=== PATIENT | female | born 1950 | race American Indian/Alaskan Native ===

== ENCOUNTER 2018-05-19 08:36 | Inpatient (IN) | payer MEDICAID, MEDICARE ==
--- NOTE | 2018-05-19 08:47 | C.PDOC ---
History Of Present Illness As per daughter, 67 years old female presents to ED for complaints of Altered mental status. As per daughter, patient was last seen normal last night at 11PM, she was responding to commands, speaking normally with no slurred speech; but this morning around 6:30AM patient was not responding to commands or speaking. Patient has PMHx of stage 4 pancreatic cancer an was at the hospital last night and was discharged in a stable condition. Patient is also on blood thinner(xarelto) for DVT. Denies Hx of Stroke. No cough, fever, chills or night sweats. No trauma or falls. No other complaints. PMD: [facility]. Time Seen by Provider: 05/19/18 08:46 History Per: Family (Daughter) History/Exam Limitations: clinical condition Onset/Duration Of Symptoms: Hrs Current Symptoms Are (Timing): Still Present Recent travel outside of the [place]: No Past Medical History Reviewed: Historical Data, Nursing Documentation, Vital Signs - Medical History PMH: Arthritis, Asthma, Bronchitis Surgical History: Cholecystectomy Family History: States: Unknown Family Hx - Social History Hx Alcohol Use: No Hx Substance Use: No - Immunization History Hx Tetanus Toxoid Vaccination: No Hx Influenza Vaccination: Yes (07/2015) Hx Pneumococcal Vaccination: Yes (07/2015) Review Of Systems Review Of Systems: ROS cannot be obtained secondary to pt's inabilty to answer questions. (Due to clinical condition) Physical Exam - Physical Exam Appears: Non-toxic, No Acute Distress, Other (More responsive ) Skin: Warm, Dry, No Rash Head: Atraumatic, Normacephalic Eye(s): bilateral: Normal Inspection, PERRL, EOMI Oral Mucosa: Moist Neck: Normal ROM, Trachea Midline, Supple, No Other (Meningeal signs ) Chest: Symmetrical, No Tenderness Cardiovascular: Rhythm Regular, No Murmur Respiratory: Normal Breath Sounds, No Rales, No Rhonchi, No Wheezing Gastrointestinal/Abdominal: Soft, No Tenderness Extremity: Normal ROM Extremity: Bilateral: Atraumatic, Normal Color And Temperature, Normal ROM Pulses: Left Radial: Normal, Right Radial: Normal, Left Dorsalis Pedis: Normal, Right Dorsalis Pedis: Normal Neurological/Psych: Oriented x3, Normal Speech, Normal Cognition, No Cerebellar Signs ED Course And Treatment - Laboratory Results Result Diagrams: 05/20/18 03:25 05/20/18 03:25 - Other Rad CXR X-Ray: Viewed By Me, Read By Radiologist Interpretation: Chest x-ray single frontal view. HISTORY: Code stroke. COMPARISON: None available. Findings: Mild venous congestion. Tortuous ectatic aorta. No gross aortic atherosclerotic calcification noted. Right paratracheal prominence may represent prominent vasculature. Heart size within normal limits. Bilateral hilar prominence. Degenerative changes in the spine and shoulders. Impression: Mild venous congestion. Tortuous ectatic aorta. No gross aortic atherosclerotic calcification noted. Heart size within normal limits. Bilateral hilar prominence. - CT Scan/US CT Head Other Rad Studies (CT/US): Read By Radiologist, Radiology Report Reviewed CT/US Interpretation: Date of service: 05/19/2018. PROCEDURE: CT HEAD WITHOUT CONTRAST. HISTORY: Code Stroke. COMPARISON: 10/16/2015. TECHNIQUE: Axial computed tomography images were obtained through the head/brain without intravenous contrast. Radiation dose: Total exam DLP = 999.59 mGy-cm. This CT exam was performed using one or more of the following dose reduction techniques: Automated exposure control, adjustment of the mA and/or kV according to patient size, and/or use of iterative reconstruction technique. FINDINGS: HEMORRHAGE: No intracranial hemorrhage. BRAIN: No mass effect or edema. Scattered focal lucencies in the subcortical and periventricular white matter suggestive for chronic microvascular ischemic change. Punctate right basal ganglia lacunar infarct. Additional punctate hypodensity in the left caudate head which may represent a prominent perivascular space versus punctate lacunar infarct. VENTRICLES: Unremarkable. No hydrocephalus. CALVARIUM: Unremarkable. PARANASAL SINUSES: Mild mucosal thickening of the sphenoid sinus. MASTOID AIR CELLS: Unremarkable as visualized. No inflammatory changes. OTHER FINDINGS: None. IMPRESSION: No acute intracranial hemorrhage. Punctate right basal ganglia lacunar infarct. Chronic microvascular ischemic changes. Additional punctate hypodensity in the left caudate head which may represent a prominent perivascular space versus punctate lacunar infarct. Mild mucosal thickening of the sphenoid sinus. If there is persistent concern for acute ischemic change, consider correlation with MRI. These findings were reported to Dr. Matos at 9:21 a.m. on 05/19/2018. NIHSS Stroke Scale - Date/Time Evaluation Performed Date Performed: 05/19/18 Time Performed: 16:00 When Was NIHSS Performed: Code Stroke - How Severe is the Stroke Level of Consciousness: 0=Alert LOC to Questions: 0=Both comments correct LOC to commands: 0=Obeys both correctly Best Gaze: 0=Normal Visual: 0=No visual loss Facial: 0=Normal Motor Arm - Left: 2=Falls before 10 sec Motor Arm - Right: 2=Falls before 10 sec Motor Leg - Left: 2=Falls before 5 sec Motor Leg - Right: 2=Falls before 5 sec Limb Ataxia: 0=Absent Sensory: 0=Normal Best Language: 0=No aphasia Dysarthia: 0=Normal articulation Extinction & Inattention (Neglect): 0=Normal, no object Score: 8 Medical Decision Making Medical Decision Makin yr old female w/ hx of pancreatic CA p/w diffuse weakness, last seen normal last night. Code stroke called given NIHSS 8, however diffuse weakness, non focal, non stroke like presenting symptoms taken into consideration and likely non-tpa candidate given on blood thinner and out of window. Plan: * IV Fluids * Tylenol * Blood bank * CT Head * EKG * Blood work * CXR * Blood culture * Flu Swab * Urinalysis 8:56AM: * Code stroke called Appreciate consult w/ Dr. Urias: Likely Metabolic cause of weakness WBC returned: elevated: Code sepsis called. Abx ordered. Blood cultures taken previously. ?Intra-abdominal infection vs elevated WBC 2/2 ?Pancreatic CA Negative Urine. Negative XR. No meningeal signs. Appreicate consult w/ Dr. Stanley, P- Accepts admission. Endorsed Pending CT. Pt in NAD, protecting airway. Strength is better per family and pt. Disposition - Disposition Disposition: HOSPITALIZED Disposition Time: 12:23 Condition: GOOD - Clinical Impression Clinical Impression: Sepsis - Scribe Statement The provider has reviewed the documentation as recorded by the Scribmady Arce All medical record entries made by the Priyaibmady were at my direction and per sonally dictated by me. I have reviewed the chart and agree that the record accurately reflects my personal performance of the history, physical exam, medical decision making, and the department course for this patient. I have also personally directed, reviewed, and agree with the discharge instructions and disposition.
[2018-05-19] MEDS ORDERED: Iodixanol 320 MG/ML 100 ML BOTTLE IV ONE ×2 (09:04→12:51)
[2018-05-19 09:11] LABS: BASO # 0.2 K/uL (0.0-0.2); BASO % 0.7 % (0.0-2.0); EOS # 0.1 K/uL (0.0-0.7); EOS % 0.3 % (0.0-4.0); LYMPH # 1.7 K/uL (1.0-4.3); LYMPH % 6.1 % (20.0-40.0); MEAN CELL VOLUME 80.6 fL (81.0-99.0); MEAN CORPUSCULAR HEMOGLOBIN 26.5 pg (27.0-31.0); MEAN CORPUSCULAR HGB CONC 32.9 g/dL (33.0-37.0); MEAN PLATELET VOLUME 8.7 fL (7.2-11.7); MONO # 1.4 K/uL (0.0-0.8); MONO % 5.1 % (0.0-10.0); NEUT # 24.1 K/uL (1.8-7.0); NEUT % 87.8 % (50.0-75.0); NRBC % 0.1 % (0.0-2.0); PLATELET COUNT 224 K/uL (130-400); RBC 3.77 Mil/uL (3.80-5.20); RED CELL DISTRIBUTION WIDTH 16.2 % (11.5-14.5)
[2018-05-19 09:18] LABS: WHITE BLOOD COUNT 27.5 K/uL (4.8-10.8)
--- NOTE | 2018-05-19 09:26 | CT ---
Date of service: 05/19/2018 PROCEDURE: CT HEAD WITHOUT CONTRAST. HISTORY: Code Stroke COMPARISON: 10/16/2015 TECHNIQUE: Axial computed tomography images were obtained through the head/brain without intravenous contrast. Radiation dose: Total exam DLP = 999.59 mGy-cm. This CT exam was performed using one or more of the following dose reduction techniques: Automated exposure control, adjustment of the mA and/or kV according to patient size, and/or use of iterative reconstruction technique. FINDINGS: HEMORRHAGE: No intracranial hemorrhage. BRAIN: No mass effect or edema. Scattered focal lucencies in the subcortical and periventricular white matter suggestive for chronic microvascular ischemic change. Punctate right basal ganglia lacunar infarct. Additional punctate hypodensity in the left caudate head which may represent a prominent perivascular space versus punctate lacunar infarct. VENTRICLES: Unremarkable. No hydrocephalus. CALVARIUM: Unremarkable. PARANASAL SINUSES: Mild mucosal thickening of the sphenoid sinus. MASTOID AIR CELLS: Unremarkable as visualized. No inflammatory changes. OTHER FINDINGS: None. IMPRESSION: No acute intracranial hemorrhage. Punctate right basal ganglia lacunar infarct. Chronic microvascular ischemic changes. Additional punctate hypodensity in the left caudate head which may represent a prominent perivascular space versus punctate lacunar infarct. Mild mucosal thickening of the sphenoid sinus. If there is persistent concern for acute ischemic change, consider correlation with MRI. These findings were reported to Dr. Matos at 9:21 a.m. on 05/19/2018.
[2018-05-19 09:27] LABS: ALB/GLOB RATIO 0.6 (1.0-2.1); ALBUMIN 2.8 g/dL (3.5-5.0); ALT/SGPT 29 U/L (9-52); AST/SGOT 79 U/L (14-36); BLOOD UREA NITROGEN 19 mg/dL (7-17); CALCIUM 8.6 mg/dl (8.6-10.4); GFR NON-AFRICAN AMERICAN > 60; HDL CHOLESTEROL 17 mg/dL (30-70); LIPASE 27 U/L (23-300)
[2018-05-19 09:28] LABS: INR 3.2; PROTHROMBIN TIME 34.6 SECONDS (9.7-12.2)
[2018-05-19 09:37] LABS: LDL CHOLESTEROL 81 mg/dL (0-129)
[2018-05-19] MEDS ORDERED: Sodium Chloride 0.9% 1,000 ML ONE (09:48)
[2018-05-19] MEDS: Sodium Chloride 0.9% 1,000 ML IV SCH ×2 (09:55→16:37)
--- NOTE | 2018-05-19 09:55 | RAD ---
Chest x-ray single frontal view HISTORY: Code stroke. COMPARISON: None available. Findings: Mild venous congestion. Tortuous ectatic aorta. No gross aortic atherosclerotic calcification noted. Right paratracheal prominence may represent prominent vasculature. Heart size within normal limits. Bilateral hilar prominence. Degenerative changes in the spine and shoulders. Impression: Mild venous congestion. Tortuous ectatic aorta. No gross aortic atherosclerotic calcification noted. Heart size within normal limits. Bilateral hilar prominence.
[2018-05-19 10:26] LABS: SQUAMOUS EPITHIAL < 1 /hpf (0-5); URINE BACTERIA RARE (<OCC); URINE BILIRUBIN NEGATIVE (NEGATIVE); URINE BLOOD 1+ (NEGATIVE); URINE CLARITY Clear (Clear); URINE COLOR Amber (YELLOW); URINE GLUCOSE (UA) NORMAL (Normal); URINE LEUKOCYTE ESTERASE NEG Leu/uL (Negative); URINE PROTEIN NEGATIVE (NEGATIVE)
[2018-05-19 10:43] LABS: BANDS 2 % (0-2); LYMPHOCYTE 6 % (20-40); MONOCYTE 5 % (0-10); NEUTROPHIL 87 % (50-75); PLATELET ESTIMATE NORMAL (NORMAL); TOTAL CELLS COUNTED 100
[2018-05-19 10:44] LABS: ANISOCYTOSIS MODERATE; HYPOCHROMIC MODERATE; MICROCYTOSIS SLIGHT; POIKILOCYTOSIS SLIGHT; POLYCHROMIC SLIGHT; TARGET CELLS SLIGHT
[2018-05-19 10:45] LABS: GIANT PLATELETS PRESENT; SCHISTOCYTES SLIGHT; SPHEROCYTES SLIGHT
[2018-05-19] MEDS ORDERED: Piperacillin/Tazobact 3.375 gm 100 ML IVPB ONE (11:41)
[2018-05-19] MEDS: Piperacillin/Tazobact 3.375 GM in Sodium Chloride 100 ML IVPB SCH ×3 (11:49→23:15)
[2018-05-19] MEDS ORDERED: Nystatin 100,000 Units/ml Oral Susp 5 ml UD PO STA (12:05)
[2018-05-19 12:34] LABS: VENOUS BLOOD GAS PCO2 48 mmHg (40-60); VENOUS BLOOD GAS PO2 81 mm/Hg (30-55)
--- NOTE | 2018-05-19 15:57 | CP.PCM.PN ---
Subjective - Date & Time of Evaluation Date of Evaluation: 05/19/18 Time of Evaluation: 15:57 - Subjective Subjective: H&P dictated #[id number] Objective - Vital Signs/Intake and Output Vital Signs (last 24 hours): Temp Pulse Resp BP Pulse Ox 97.9 F 113 H 18 114/78 98 05/19/18 14:30 05/19/18 14:30 05/19/18 14:30 05/19/18 14:30 05/19/18 14:30 - Medications Medications: Current Medications Sodium Chloride (Sodium Chloride 0.9%) 1,000 mls @ 100 mls/hr IV .Q10H [facility] Last Admin: 05/19/18 09:55 Dose: 100 mls/hr Piperacillin Sod/Tazobactam (Sod 3.375 gm/ Sodium Chloride) 100 mls @ 200 mls/hr IVPB Q6H [facility]; Protocol Last Admin: 05/19/18 11:49 Dose: 200 mls/hr - Labs Labs: 05/19/18 09:06 05/19/18 09:06 PT 34.6 SECONDS (9.7-12.2) H 05/19/18 09:06 INR 3.2 H* 05/19/18 09:06 APTT 31 SECONDS (21-34) 05/19/18 09:06
--- NOTE | 2018-05-19 16:19 | CT ---
Date of service: 05/19/2018 PROCEDURE: CT Abdomen and Pelvis with intravenous contrast HISTORY: Pancreatic cancer with metastatic disease. Elevated white blood cell count. COMPARISON: CT dated 03/29/2012 TECHNIQUE: Multiple contiguous axial images were performed through the abdomen and pelvis with the use of intravenous contrast. Subsequently, sagittal and coronal reformatted images were obtained. Radiation dose: Total exam DLP = 329.98 mGy-cm. This CT exam was performed using one or more of the following dose reduction techniques: Automated exposure control, adjustment of the mA and/or kV according to patient size, and/or use of iterative reconstruction technique. FINDINGS: LOWER THORAX: Unremarkable. LIVER: Innumerable low-attenuation lesions throughout the liver consistent with prominent hepatic metastatic disease. GALLBLADDER AND BILE DUCTS: Surgical clips at the gallbladder hiatus. PANCREAS: Heterogeneous attenuation of the pancreas. Patient with known history of pancreatic cancer. Suggestion of a questionable ill-defined heterogeneous mass lesion at the junction of the body and tail of the pancreas measuring up to 2.6 centimeters. Heterogeneity and thickening at the level of the pancreatic head. Correlation with pancreatic protocol CT would be helpful for better evaluation of the pancreas. SPLEEN: Unremarkable. ADRENALS: Unremarkable. No mass. KIDNEYS AND URETERS: Unremarkable. No hydronephrosis. No solid mass. VASCULATURE: Suggestion of a filling defect within the left iliac vein concerning for deep venous thrombosis. Correlation with Doppler ultrasound would be helpful for further evaluation if clinically indicated. Additional questionable filling defect within the right iliac vein also concerning for possible DVT. Atherosclerotic calcification within the aorta. BOWEL: Gastric wall thickening. Distended and thick-walled small bowel loops suggestive for an enteritis. Colonic diverticulosis. Focal thickening of the mid sigmoid colon which may represent a focal colitis however colonic lesion and or colonic neoplasm at this level cannot be excluded. Correlation with colonoscopy would be helpful if clinically indicated. APPENDIX: Not well identified. PERITONEUM: Large amount of abdominal and pelvic ascites. Peritoneal carcinomatosis can't be excluded. LYMPH NODES: Shotty para-aortic and inguinal lymph nodes. Shotty mesenteric lymph nodes. BLADDER: Distended urinary bladder. REPRODUCTIVE: Unremarkable. BONES: Degenerative changes in the spine. OTHER FINDINGS: Large amount of abdominal and pelvic ascites. Diffuse anasarca. IMPRESSION: 1. Suggestion of a filling defect within the left iliac vein concerning for deep venous thrombosis. Correlation with Doppler ultrasound would be helpful for further evaluation if clinically indicated. Additional questionable filling defect within the right iliac vein also concerning for possible DVT. 2. Focal thickening of the mid sigmoid colon which may represent a focal colitis however colonic lesion and or colonic neoplasm at this level cannot be excluded. Correlation with colonoscopy would be helpful if clinically indicated. 3. Gastric wall thickening. Distended and thick-walled small bowel loops suggestive for an enteritis. 4. Heterogeneous attenuation of the pancreas. Patient with known history of pancreatic cancer. Suggestion of a questionable ill-defined heterogeneous mass lesion at the junction of the body and tail of the pancreas measuring up to 2.6 centimeters. Heterogeneity and thickening at the level of the pancreatic head. Correlation with pancreatic protocol CT would be helpful for better evaluation of the pancreas. 5. Innumerable low-attenuation lesions throughout the liver consistent with prominent hepatic metastatic disease. 6. Large amount of abdominal and pelvic ascites. Peritoneal carcinomatosis can't be excluded. Additional findings as above.
[2018-05-19] MEDS: Dextrose 5%/0.9% NS 1,000 ML IV SCH (17:15)
--- NOTE | 2018-05-19 18:19 | CP.PCM.CON ---
History of Present Illness - History of Present Illness History of Present Illness: Neurology Consultation Note: Mrs. Nunez is a 67-year-old woman with a past medical history of stage IV pancreatic cancer, who developed acute encephalopathy, discovered by daughter to be confused, and brought in to the ED. Labs and vital signs were consistent with sepsis. Neurology was consulted to assist with the management and care. She is currently on Zosyn for suspected infection. When I saw the patient, she was back to baseline and her family was at bedside and agreed. Review of Systems - Constitutional Constitutional: As Per HPI - EENT Eyes: absent: As Per HPI, Blind Spots, Blurred Vision, Change in Vision, Decr eased Night Vision, Diplopia, Discharge, Dry Eye, Exophthalmos, Floaters, Irritation, Itchy Eyes, Loss of Peripheral Vision, Pain, Photophobia, Requires Corrective Lenses, Sees Flashes, Spots in Vision, Tunnel Vision, Other Visual Disturbances, Loss of Vision, Other Ears: absent: As Per HPI, Decreased Hearing, Ear Discharge, Ear Pain, Tinnitus, Abnormal Hearing, Disequilibrium, Dizziness, Other Nose/Mouth/Throat: absent: As Per HPI, Epistaxis, Nasal Congestion, Nasal Discharge, Nasal Obstruction, Nasal Trauma, Nose Pain, Post Nasal Drip, Sinus Pain, Sinus Pressure, Bleeding Gums, Change in Voice, Dental Pain, Dry Mouth, Dysphagia, Halitosis, Hoarsness, Lip Swelling, Mouth Lesions, Mouth Pain, Odynophagia, Sore Throat, Throat Swelling, Tongue Swelling, Facial Pain, Neck Pain, Neck Mass, Other - Breasts Breasts: absent: As Per HPI, Change in Shape, Mass, Pain, Nipple Discharge, Nipple Inversion, Skin Changes, Swelling, Other - Cardiovascular Cardiovascular: absent: As Per HPI, Acrocyanosis, Chest Pain, Chest Pain at Rest, Chest Pain with Activity, Claudication, Diaphoresis, Dyspnea, Dyspnea on Exertion, Edema, Irregular Heart Rhythm, Pain Radiating to Arm/Neck/Jaw, Leg Edema, Leg Ulcers, Lightheadedness, Orthopnea, Palpitations, Paroxysmal Nocturnal Dyspnea, Pedal Edema, Radiating Pain, Rapid Heart Rate, Slow Heart Rate, Syncope, Other - Respiratory Respiratory: absent: As Per HPI, Cough, Dyspnea, Hemoptysis, Dyspnea on Exertion, Wheezing, Snoring, Stridor, Pain on Inspiration, Chest Congestion, Excessive Mucous Production, Change in Mucous Color, Pain with Coughing, Other - Gastrointestinal Gastrointestinal: As Per HPI - Genitourinary Genitourinary: absent: As Per HPI, Change in Urinary Stream, Difficulty Urinating, Dysuria, Flank Pain, Hematuria, Pyuria, Nocturia, Urinary Incontinence, Urinary Frequency, Urinary Hesitance, Urinary Urgency, Voiding Freq/Small Amts, Freq UTI, Hx Renal/Bladder Calculi, Hx /Renal Surgery, B ladder Distension, Other - Musculoskeletal Musculoskeletal: absent: As Per HPI, Abnormal Gait, Arthralgias, Atrophy, Back Pain, Deformity, Joint Swelling, Limited Range of Motion, Loss of Height, Muscle Cramps, Muscle Weakness, Myalgias, Neck Pain, Numbness, Radiating Pain into Limb, Stiffness, Tingling, Other - Integumentary Integumentary: absent: As Per HPI, Acne, Alopecia, Bleeding Lesions, Change in Hair, Change in Nails, Change in Pigmentation, Changing Lesions, Dry Skin, Erythema, Furuncle, Hirsutism, Lesions, New Lesions, Non-Healing Lesions, Photosensitivity, Pruritus, Rash, Skin Pain, Skin Ulcer, Sores, Striae, Swelling, Unusual Bruising, Wounds, Jaundice, Other - Neurological Neurological: As Per HPI - Psychiatric Psychiatric: absent: As Per HPI, Abnormal Sleep Pattern, Anhedonia, Anxiety, Auditory Hallucinations, Behavioral Changes, Change in Appetite, Change in Libido, Confusion, Depression, Difficulty Concentrating, Hallucinations, Homicidal Ideation, Hopelessness, Irritability, Memory Loss, Mood Swings, Panic Attacks, Paranoia, Suicidal Ideation, Visual Hallucinations, Tactile Hallucinations, Other - Endocrine Endocrine: absent: As Per HPI, Change in Body Appearance, Change in Libido, Cold Intolorance, Deepening of Voice, Excessive Sweating, Fatigue, Flushing, Heat Intolorance, Increase in Ring/Shoe/Hat Size, Palpitations, Polydipsia, Polyphagia, Polyuria, Other Past Patient History - Past Social History Smoking Status: Never Smoked - PULMONARY Hx Asthma: Yes Hx Bronchitis: Yes - HEMATOLOGICAL/ONCOLOGICAL Hx Cancer: Yes (pancreatic) - MUSCULOSKELETAL/RHEUMATOLOGICAL Hx Arthritis: Yes - GASTROINTESTINAL Hx Gastroesophageal Reflux: Yes - PSYCHIATRIC Hx Substance Use: No - SURGICAL HISTORY Hx Cholecystectomy: Yes - ANESTHESIA Hx Anesthesia: Yes Hx Anesthesia Reactions: No Meds Allergies/Adverse Reactions: Allergies Allergy/AdvReac Type Severity Reaction Status Date / Time shellfish derived Allergy Severe SHORTNESS Verified 05/19/18 09:42 OF BREATH - Medications Medications: Current Medications Docusate Sodium (Colace) 100 mg PO BID [facility] Folic Acid (Folic Acid) 1 mg PO DAILY [facility] Piperacillin Sod/Tazobactam (Sod 3.375 gm/ Sodium Chloride) 100 mls @ 200 mls/hr IVPB Q6H [facility]; Protocol Last Admin: 05/19/18 11:49 Dose: 200 mls/hr Dextrose/Sodium Chloride (Dextrose 5%/0.9% Ns 1000 Ml) 1,000 mls @ 75 mls/hr IV .[id number] [facility] Mirtazapine (Remeron) 7.5 mg PO HS [facility] Morphine Sulfate (Morphine Extended Release Tab) 30 mg PO Q8 [place] Multivitamins (Hexavitamin) 1 tab PO DAILY [facility] Pantoprazole Sodium (Protonix Ec Tab) 20 mg PO DAILY [facility] Rivaroxaban (Xarelto) 15 mg PO BID [facility] Sennosides (Senokot Tab) 8.6 mg PO BID [facility] Physical Exam - Constitutional Appears: Cachectic, Chronically Ill - Head Exam Head Exam: ATRAUMATIC, NORMAL INSPECTION, NORMOCEPHALIC - Eye Exam Eye Exam: EOMI, Normal appearance, PERRL - ENT Exam ENT Exam: Mucous Membranes Moist, Normal Exam - Neck Exam Neck exam: Positive for: Normal Inspection - Respiratory Exam Respiratory Exam: Clear to Auscultation Bilateral, NORMAL BREATHING PATTERN - Cardiovascular Exam Cardiovascular Exam: REGULAR RHYTHM, +S1, +S2 - GI/Abdominal Exam GI & Abdominal Exam: Normal Bowel Sounds, Soft. absent: Tenderness - Rectal Exam Rectal Exam: Deferred - Back Exam Back exam: NORMAL INSPECTION - Neurological Exam Neurological exam: Alert, CN II-XII Intact, Normal Gait, Oriented x3, Reflexes Normal - Psychiatric Exam Psychiatric exam: Normal Affect, Normal Mood - Skin Skin Exam: Dry, Intact, Normal Color, Warm Results - Vital Signs Recent Vital Signs: Last Vital Signs Temp 97.9 F 05/19/18 15:00 Pulse 111 H 05/19/18 15:00 Resp 20 05/19/18 15:00 BP 114/78 05/19/18 15:00 Pulse Ox 97 05/19/18 15:00 - Labs Result Diagrams: 05/19/18 09:06 05/19/18 09:06 Labs: Laboratory Results - last 24 hr 05/19/18 05/19/18 05/19/18 09:06 09:06 09:06 WBC 27.5 H D RBC 3.77 L Hgb 10.0 L D Hct 30.4 L MCV 80.6 L MCH 26.5 L MCHC 32.9 L RDW 16.2 H Plt Count 224 MPV 8.7 Neut % (Auto) 87.8 H Lymph % (Auto) 6.1 L [place] % (Auto) 5.1 Eos % (Auto) 0.3 Baso % (Auto) 0.7 Neut # (Auto) 24.1 H Lymph # (Auto) 1.7 [place] # (Auto) 1.4 H Eos # (Auto) 0.1 Baso # (Auto) 0.2 Neutrophils % (Manual) 87 H Band Neutrophils % 2 Lymphocytes % (Manual) 6 L Monocytes % (Manual) 5 Platelet Estimate Normal Giant Platelets Present Polychromasia Slight Hypochromasia (manual) Moderate Poikilocytosis (manual Slight Anisocytosis (manual) Moderate Microcytosis (manual) Slight Spherocytes Slight Target Cells Slight Schistocytes Slight PT 34.6 H INR 3.2 H* APTT 31 pO2 VBG pH VBG pCO2 VBG HCO3 VBG Total CO2 VBG O2 Sat (Calc) VBG Base Excess VBG Potassium Glucose Lactate Sodium 140 Potassium 4.6 Chloride 97 L Carbon Dioxide 32 H Anion Gap 16 BUN 19 H Creatinine 0.6 L Est GFR ( Amer) > 60 Est GFR (Non-Af Amer) > 60 Random Glucose 115 H Hemoglobin A1c Calcium 8.6 Total Bilirubin 1.6 H AST 79 H ALT 29 Alkaline Phosphatase 332 H Total Creatine Kinase 33 Troponin I 0.0160 Total Protein 7.3 Albumin 2.8 L D Globulin 4.4 H Albumin/Globulin Ratio 0.6 L Triglycerides 160 H Cholesterol 116 LDL Cholesterol Direct 81 HDL Cholesterol 17 L Lipase 27 Venous Blood Potassium Urine Color Urine Clarity Urine pH Ur Specific [place] Urine Protein Urine Glucose (UA) Urine Ketones Urine Blood Urine Nitrate Urine Bilirubin Urine Urobilinogen Ur Leukocyte Esterase Urine WBC (Auto) Urine RBC (Auto) Ur Squamous Epith Cells Urine Bacteria Hyaline Casts Influenza Typ A,B (EIA) Blood Type Antibody Screen 11/17/18 11/17/18 11/17/18 09:06 09:06 09:42 WBC RBC Hgb Hct MCV MCH MCHC RDW Plt Count MPV Neut % (Auto) Lymph % (Auto) [place] % (Auto) Eos % (Auto) Baso % (Auto) Neut # (Auto) Lymph # (Auto) [place] # (Auto) Eos # (Auto) Baso # (Auto) Neutrophils % (Manual) Band Neutrophils % Lymphocytes % (Manual) Monocytes % (Manual) Platelet Estimate Giant Platelets Polychromasia Hypochromasia (manual) Poikilocytosis (manual Anisocytosis (manual) Microcytosis (manual) Spherocytes Target Cells Schistocytes PT INR APTT pO2 VBG pH VBG pCO2 VBG HCO3 VBG Total CO2 VBG O2 Sat (Calc) VBG Base Excess VBG Potassium Glucose Lactate Sodium Potassium Chloride Carbon Dioxide Anion Gap BUN Creatinine Est GFR ( Amer) Est GFR (Non-Af Amer) Random Glucose Hemoglobin A1c 5.1 Calcium Total Bilirubin AST ALT Alkaline Phosphatase Total Creatine Kinase Troponin I Total Protein Albumin Globulin Albumin/Globulin Ratio Triglycerides Cholesterol LDL Cholesterol Direct HDL Cholesterol Lipase Venous Blood Potassium Urine Color Urine Clarity Urine pH Ur Specific [place] Urine Protein Urine Glucose (UA) Urine Ketones Urine Blood Urine Nitrate Urine Bilirubin Urine Urobilinogen Ur Leukocyte Esterase Urine WBC (Auto) Urine RBC (Auto) Ur Squamous Epith Cells Urine Bacteria Hyaline Casts Influenza Typ A,B (EIA) Negative for flu a/b Blood Type B POSITIVE Antibody Screen Negative 05/19/18 05/19/18 10:15 12:26 WBC RBC Hgb Hct MCV MCH MCHC RDW Plt Count MPV Neut % (Auto) Lymph % (Auto) [place] % (Auto) Eos % (Auto) Baso % (Auto) Neut # (Auto) Lymph # (Auto) [place] # (Auto) Eos # (Auto) Baso # (Auto) Neutrophils % (Manual) Band Neutrophils % Lymphocytes % (Manual) Monocytes % (Manual) Platelet Estimate Giant Platelets Polychromasia Hypochromasia (manual) Poikilocytosis (manual Anisocytosis (manual) Microcytosis (manual) Spherocytes Target Cells Schistocytes PT INR APTT pO2 81 H VBG pH 7.40 VBG pCO2 48 VBG HCO3 28.0 VBG Total CO2 31.2 H VBG O2 Sat (Calc) 97.8 H VBG Base Excess 4.0 H VBG Potassium 3.8 Glucose 93 Lactate 1.7 Sodium 145.0 Potassium Chloride 112.0 H Carbon Dioxide Anion Gap BUN Creatinine Est GFR ( Amer) Est GFR (Non-Af Amer) Random Glucose Hemoglobin A1c Calcium Total Bilirubin AST ALT Alkaline Phosphatase Total Creatine Kinase Troponin I Total Protein Albumin Globulin Albumin/Globulin Ratio Triglycerides Cholesterol LDL Cholesterol Direct HDL Cholesterol Lipase Venous Blood Potassium 3.8 Urine Color Ryann Urine Clarity Clear Urine pH 5.0 Ur Specific [place] 1.019 Urine Protein Negative Urine Glucose (UA) Normal Urine Ketones Trace Urine Blood 1+ H Urine Nitrate Negative Urine Bilirubin Negative Urine Urobilinogen 4.0 H Ur Leukocyte Esterase Neg Urine WBC (Auto) 1 Urine RBC (Auto) 6 H Ur Squamous Epith Cells < 1 Urine Bacteria Rare Hyaline Casts 6-10 H Influenza Typ A,B (EIA) Blood Type Antibody Screen Assessment & Plan (1) Toxic metabolic encephalopathy Assessment and Plan: The patient is back to baseline now. The acute encephalopathy was likely due to infection. Continue treating the underlying cause. Thank you for the consultation. Status: Acute
[2018-05-19] MEDS ORDERED: oxyCODONE 5 mg Immediate Release Tab PO PRN (18:37)
[2018-05-19] MEDS: oxyCODONE 5 mg Immediate Release Tab PO PRN (18:47)
[2018-05-19] MEDS: Morphine 30 mg SR Tab PO SCH (21:37)
[2018-05-19] MEDS: metroNIDAZOLE IV 500 mg/100 ml 250 MG in Premixed IV 1 EA IVPB SCH (21:43)
[2018-05-19 23:57] LABS: SQUAMOUS EPITHIAL 7 /hpf (0-5); URINE AMORPHOUS SEDIMENT RARE /ul (<OCC); URINE BILIRUBIN NEGATIVE (NEGATIVE); URINE BLOOD NEGATIVE (NEGATIVE); URINE CLARITY Clear (Clear); URINE COLOR Amber (YELLOW); URINE GLUCOSE (UA) NORMAL (Normal); URINE LEUKOCYTE ESTERASE NEG Leu/uL (Negative); URINE PROTEIN NEGATIVE (NEGATIVE)
[2018-05-20] MEDS: metroNIDAZOLE IV 500 mg/100 ml 250 MG in Premixed IV 1 EA IVPB SCH ×3 (02:57→20:21)
[2018-05-20 03:29] LABS: BASO # 0.2 K/uL (0.0-0.2); BASO % 0.9 % (0.0-2.0); EOS # 0.2 K/uL (0.0-0.7); EOS % 0.8 % (0.0-4.0); HEMOGLOBIN 8.7 g/dL (11.0-16.0); LYMPH # 0.8 K/uL (1.0-4.3); LYMPH % 3.5 % (20.0-40.0); MEAN CELL VOLUME 80.5 fL (81.0-99.0); MEAN CORPUSCULAR HEMOGLOBIN 26.6 pg (27.0-31.0); MEAN CORPUSCULAR HGB CONC 33.1 g/dL (33.0-37.0); MEAN PLATELET VOLUME 8.9 fL (7.2-11.7); MONO # 0.6 K/uL (0.0-0.8); MONO % 2.7 % (0.0-10.0); NEUT # 21.2 K/uL (1.8-7.0); NEUT % 92.1 % (50.0-75.0); NRBC % 0.2 % (0.0-2.0); PLATELET COUNT 168 K/uL (130-400); RBC 3.26 Mil/uL (3.80-5.20); RED CELL DISTRIBUTION WIDTH 16.4 % (11.5-14.5)
[2018-05-20 03:44] LABS: ALB/GLOB RATIO 0.6 (1.0-2.1); ALBUMIN 2.4 g/dL (3.5-5.0); ALT/SGPT 31 U/L (9-52); AST/SGOT 65 U/L (14-36); BLOOD UREA NITROGEN 16 mg/dL (7-17); CALCIUM 7.9 mg/dl (8.6-10.4); GFR NON-AFRICAN AMERICAN > 60; HDL CHOLESTEROL 16 mg/dL (30-70)
[2018-05-20 03:55] LABS: LDL CHOLESTEROL 70 mg/dL (0-129)
[2018-05-20 04:08] LABS: BANDS 4 % (0-2); BASOPHIL 1 % (0-2); LYMPHOCYTE 1 % (20-40); MONOCYTE 1 % (0-10); NEUTROPHIL 93 % (50-75); PLATELET ESTIMATE NORMAL (NORMAL); TOTAL CELLS COUNTED 100
--- NOTE | 2018-05-20 05:13 | HP ---
CHIEF COMPLIANT: The patient was found unresponsive by patient's family this morning around 06:00 a.m. HISTORY OF PRESENT ILLNESS: Ms. Nunez is a 67-year-old female with past medical history of asthma; DVT and PE, on Xarelto for the past one month or so; recently diagnosed stage IV pancreatic CA with mets to liver and omentum; who has been in [place], came to [place] only two weeks ago. She was admitted to [facility], on 05/08/2018 for symptoms of not feeling well and for dehydration. The patient was treated at [facility] until last night and she was discharged only last night. This morning, when the patient was awaken by the daughter, she did not respond. She did not move her extremities. Her symptoms lasted for about 20 to 30 minutes, which made her brought to the emergency room. As per the ER physician, she was more alert and was responding to commands and was speaking normally without any deficits. The patient was found to be having elevated WBC count and the patient is being admitted for further evaluation and management. When I examined the patient, she denied any headache or dizziness. Denied any chest pain, shortness of breath, or wheezing. Denied any nausea, vomiting, abdominal pain, diarrhea, or constipation. Denied any urinary complaints. Denied any leg pains or leg cramps. Denied any other neurologic symptoms. PAST MEDICAL HISTORY: As described DVT and PE, on anticoagulation; stage IV metastatic pancreatic CA with mets to liver and omentum; asthma. PAST SURGICAL HISTORY: Underwent cholecystectomy. FAMILY HISTORY: Asthma in mother, breast cancer in five aunts. PERSONAL HISTORY: She is , having five biological children and six adopted children and her daughter, Adis Ruiz, is the power of assistant prosecuting attorney, who will be making decision on the patient's behalf. SOCIAL HISTORY: Denies smoking, alcohol, or drug abuse. ALLERGIES: SHE IS ALLERGIC TO FISH. MEDICATIONS FROM HOME: Include nystatin oral suspension, senna b.i.d., Remeron 7.5 mg daily, omeprazole 20 mg daily, multivitamin, Colace 100 mg p.o. b.i.d., folic acid 1 mg daily, oxycodone 5 mg p.o. every 3 hours p.r.n., morphine sulfate 30 mg p.o. every 8 hours, Xarelto 15 mg p.o. b.i.d. REVIEW OF SYSTEMS: As described in history of present illness. All other systems reviewed and were found to be negative. PHYSICAL EXAMINATION: GENERAL: Elderly female lying in bed in no acute distress. VITAL SIGNS: Blood pressure is 114/78, pulse 111, O2 sats 97% on 2 L nasal cannula, respiratory rate 20, T-max is 100.7. HEENT: Pupils equal, round, reacting to light and accommodation. Extraocular muscles intact. No icterus. Slightly pallor. Dry mucous membranes. No pharyngeal congestion. NECK: Supple. No JVD. LUNGS: Bilateral vesicular breath sounds. No wheezing. No rhonchi. CARDIOVASCULAR: S1, S2 present. Regular, tachycardic. ABDOMEN: Soft. Bowel sounds present, distended, nontender. No guarding. No rigidity. No rebound tenderness noted. CENTRAL NERVOUS SYSTEM: Alert, awake, oriented x3. No focal deficits noted. EXTREMITIES: No edema. Palpable peripheral pulses. LABORATORY DATA: Labs done from the ED; WBC 27.5, hemoglobin 10, hematocrit 30.4, platelets 224. PT is 34.6, INR 3.2, PTT 31. ABG on room air, pH 7.4, pO2 of 81, pCO2 of 48, O2 sats 97%, glucose is 93, lactate 1.7. Sodium 140, potassium 4.6, chloride 97, bicarbonate 32, BUN 19, creatinine 0.6, glucose 115. Hemoglobin A1c 5.1, calcium 8.6, total bilirubin 1.6, AST 79, ALT 39, alkaline phosphatase 332. Troponin 0.016, total protein 7.3, albumin 2.8, globulin 4.4, cholesterol 116, LDL 81, HDL 17, lipase 27. UA, specific gravity 1.019, pH 5, blood 1+, rbc 6. Influenza negative. Urine culture and blood cultures sent from the ED. DIAGNOSTIC DATA: Chest x-ray, heart size within normal limits, bilateral hilar prominence, mild venous congestion, no gross aortic calcification. EKG consistent with sinus tachycardia at 121 beats per minute, non-specific T-wave abnormality, short [place]. CT head shows no acute intracranial hemorrhage, punctate right basal ganglia lacunar infarct, chronic microvascular ischemic changes, mild mucosal thickening of the sphenoid sinus. CT of the abdomen and pelvis shows a filling defect within the left iliac vein concerning for DVT, focal thickening of the mid sigmoid colon which may represent focal colitis, gastric wall thickening, heterogenous attenuation of the pancreas, heterogenous mass lesion at the junction of the body and tail of the pancreas measuring 2.6 cm, numerable low attenuation lesions throughout the liver consistent with prominent hepatic metastatic disease, large amount of abdominal and pelvic ascites, peritoneal carcinomatosis. ASSESSMENT: Elderly female with history of asthma, metastatic pancreatic cancer with metastasis to liver and omentum; deep vein thrombosis, pulmonary embolism, on anticoagulation; who was in [place], returned to [place] to live with her daughter about two weeks ago, was admitted to [facility] [place] on 05/08/2018 and discharged home only last night, came into the ED, brought by patient's family for unresponsiveness which lasted for about 20 to 30 minutes as per the patient's family. In the ED, the patient was found to be having elevated WBC count and the patient is being admitted for further management. 1. Altered mental status, rule out transient ischemic attack versus cardiovascular accident, rule out cardiac causes. 2. Elevated white blood cell count in a patient with history of stage IV pancreatic cancer, recently discharged from hospital, rule out sepsis, rule out Clostridium difficile colitis. 3. Anemia. 4. Coagulopathy. 5. Hyperbilirubinemia with abnormal liver function test. 6. Stage IV metastatic liver cancer with metastasis to liver and omentum. 7. History of asthma, stable. 8. History of deep vein thrombosis and pulmonary embolism, on Xarelto for more than a month. PLAN: The patient is being admitted to telemetry. We will do neuro checks. We will check troponin, check echocardiogram. We will obtain neurology evaluation, who was contacted from ED. We will check stool for C. difficile, cultures were sent from the ED. We will start empiric antibiotics with Zosyn and Flagyl, pending culture results. We will obtain ID evaluation with Dr. Casas. We will obtain hematology consult with Dr. Webb for metastatic CA of the pancreas. I will obtain records from [facility]. The patient was evaluated by Dr. Weinberg from [facility]. I discussed with the patient and patient's daughter, who was at bedside, regarding DNR status. The patient has a living will and patient's power of assistant prosecuting attorney, Adis Ruiz, who is a daughter and she is the power of assistant prosecuting attorney. She will be bringing in the paper in a.m. I advised the patient to get the records from [place] if they have anything available. We will obtain records from [facility]. We will repeat labs in a.m. The patient's prognosis is guarded. The patient's family understands the poor prognosis. We will add further recommendations as her clinical course progresses. Syed Cheema MD
[2018-05-20] MEDS: Piperacillin/Tazobact 3.375 GM in Sodium Chloride 100 ML IVPB SCH ×4 (05:50→22:33)
[2018-05-20] MEDS: Morphine 30 mg SR Tab PO SCH ×3 (05:50→22:31)
[2018-05-20] MEDS: oxyCODONE 5 mg Immediate Release Tab PO PRN ×2 (08:03→11:48)
[2018-05-20] MEDS ORDERED: Pneumococcal 23-Valent Vaccine IM ONE (10:00)
[2018-05-20] MEDS ORDERED: Influenza Vaccine 60 MCG/0.5 ML SYR (3 yr & up) IM ONE (10:00)
[2018-05-20] MEDS: Multiple Vitamins Tab PO SCH (10:19)
[2018-05-20] MEDS: Pantoprazole 20 mg EC Tab PO SCH (10:19)
--- NOTE | 2018-05-20 11:09 | CP.PCM.PN ---
Subjective - Date & Time of Evaluation Date of Evaluation: 05/20/18 Time of Evaluation: 11:09 - Subjective Subjective: Progress note dictated #[id number] Objective - Vital Signs/Intake and Output Vital Signs (last 24 hours): Temp Pulse Resp BP Pulse Ox 98.2 F 107 H 18 133/88 99 05/20/18 08:40 05/20/18 08:40 05/20/18 08:40 05/20/18 08:40 05/20/18 08:40 Intake and Output: 05/20/18 05/20/18 06:59 18:59 Intake Total 560 Output Total 250 Balance 310 - Medications Medications: Current Medications Docusate Sodium (Colace) 100 mg PO BID [facility] Last Admin: 05/20/18 10:19 Dose: 100 mg Folic Acid (Folic Acid) 1 mg PO DAILY [facility] Last Admin: 05/20/18 10:19 Dose: 1 mg Piperacillin Sod/Tazobactam (Sod 3.375 gm/ Sodium Chloride) 100 mls @ 200 mls/hr IVPB Q6H [facility]; Protocol Last Admin: 05/20/18 05:50 Dose: 200 mls/hr Dextrose/Sodium Chloride (Dextrose 5%/0.9% Ns 1000 Ml) 1,000 mls @ 75 mls/hr IV .[id number] [facility] Last Admin: 05/19/18 17:15 Dose: 75 mls/hr Metronidazole 250 mg/ (Miscellaneous) 50 mls @ 100 mls/hr IVPB Q8H [facility]; Protocol Last Admin: 05/20/18 02:57 Dose: 100 mls/hr Influenza Virus Vaccine (Fluzone Quad [id number]) 60 mcg IM .ONCE ONE Stop: 05/21/18 10:01 Mirtazapine (Remeron) 7.5 mg PO HS [facility] Last Admin: 05/19/18 21:37 Dose: 7.5 mg Morphine Sulfate (Morphine Extended Release Tab) 30 mg PO Q8 [facility] Last Admin: 05/20/18 05:50 Dose: Not Given Multivitamins (Hexavitamin) 1 tab PO DAILY [facility] Last Admin: 05/20/18 10:19 Dose: 1 tab Oxycodone HCl (Oxycodone Immediate Release Tab) 5 mg PO Q3 PRN PRN Reason: Pain, moderate (4-7) Last Admin: 05/20/18 08:03 Dose: 5 mg Pantoprazole Sodium (Protonix Ec Tab) 20 mg PO DAILY [facility] Last Admin: 05/20/18 10:19 Dose: 20 mg Rivaroxaban (Xarelto) 15 mg PO BID [facility] Last Admin: 05/20/18 10:19 Dose: 15 mg Sennosides (Senokot Tab) 8.6 mg PO BID [facility] Last Admin: 05/20/18 10:19 Dose: 8.6 mg - Labs Labs: 05/20/18 03:25 05/20/18 03:25 PT 34.6 SECONDS (9.7-12.2) H 05/19/18 09:06 INR 3.2 H* 05/19/18 09:06 APTT 31 SECONDS (21-34) 05/19/18 09:06
[2018-05-20] MEDS: Dextrose 5%/0.9% NS 1,000 ML IV SCH ×2 (11:48→19:55)
--- NOTE | 2018-05-20 16:43 | CP.PCM.CON ---
History of Present Illness - History of Present Illness History of Present Illness: 67-year-old woman with a past medical history of stage IV pancreatic cancer, who developed acute encephalopathy with suspicion of infection IV antibiotic ordered empirically pending cultures denies headache, neck stiffness more alert now + abd tenderness right side / guarding Review of Systems - Constitutional Constitutional: As Per HPI - EENT Eyes: absent: As Per HPI, Blind Spots, Blurred Vision, Change in Vision, De creased Night Vision, Diplopia, Discharge, Dry Eye, Exophthalmos, Floaters, Irritation, Itchy Eyes, Loss of Peripheral Vision, Pain, Photophobia, Requires Corrective Lenses, Sees Flashes, Spots in Vision, Tunnel Vision, Other Visual Disturbances, Loss of Vision, Other Ears: absent: As Per HPI, Decreased Hearing, Ear Discharge, Ear Pain, Tinnitus, Abnormal Hearing, Disequilibrium, Dizziness, Other Nose/Mouth/Throat: absent: As Per HPI, Epistaxis, Nasal Congestion, Nasal Discharge, Nasal Obstruction, Nasal Trauma, Nose Pain, Post Nasal Drip, Sinus Pain, Sinus Pressure, Bleeding Gums, Change in Voice, Dental Pain, Dry Mouth, Dysphagia, Halitosis, Hoarsness, Lip Swelling, Mouth Lesions, Mouth Pain, Odynophagia, Sore Throat, Throat Swelling, Tongue Swelling, Facial Pain, Neck Pain, Neck Mass, Other - Breasts Breasts: absent: As Per HPI, Change in Shape, Mass, Pain, Nipple Discharge, Nipple Inversion, Skin Changes, Swelling, Other - Cardiovascular Cardiovascular: absent: As Per HPI, Acrocyanosis, Chest Pain, Chest Pain at Rest, Chest Pain with Activity, Claudication, Diaphoresis, Dyspnea, Dyspnea on Exertion, Edema, Irregular Heart Rhythm, Pain Radiating to Arm/Neck/Jaw, Leg Edema, Leg Ulcers, Lightheadedness, Orthopnea, Palpitations, Paroxysmal Nocturnal Dyspnea, Pedal Edema, Radiating Pain, Rapid Heart Rate, Slow Heart Rate, Syncope, Other - Respiratory Respiratory: absent: As Per HPI, Cough, Dyspnea, Hemoptysis, Dyspnea on Exertion, Wheezing, Snoring, Stridor, Pain on Inspiration, Chest Congestion, Excessive Mucous Production, Change in Mucous Color, Pain with Coughing, Other - Gastrointestinal Gastrointestinal: As Per HPI - Genitourinary Genitourinary: absent: As Per HPI, Change in Urinary Stream, Difficulty Urinating, Dysuria, Flank Pain, Hematuria, Pyuria, Nocturia, Urinary Incontinence, Urinary Frequency, Urinary Hesitance, Urinary Urgency, Voiding Freq/Small Amts, Freq UTI, Hx Renal/Bladder Calculi, Hx /Renal Surgery, Bladder Distension, Other - Musculoskeletal Musculoskeletal: absent: As Per HPI, Abnormal Gait, Arthralgias, Atrophy, Back Pain, Deformity, Joint Swelling, Limited Range of Motion, Loss of Height, Muscle Cramps, Muscle Weakness, Myalgias, Neck Pain, Numbness, Radiating Pain into Limb, Stiffness, Tingling, Other - Integumentary Integumentary: absent: As Per HPI, Acne, Alopecia, Bleeding Lesions, Change in Hair, Change in Nails, Change in Pigmentation, Changing Lesions, Dry Skin, Erythema, Furuncle, Hirsutism, Lesions, New Lesions, Non-Healing Lesions, Photosensitivity, Pruritus, Rash, Skin Pain, Skin Ulcer, Sores, Striae, Swelling, Unusual Bruising, Wounds, Jaundice, Other - Neurological Neurological: As Per HPI - Psychiatric Psychiatric: absent: As Per HPI, Abnormal Sleep Pattern, Anhedonia, Anxiety, Auditory Hallucinations, Behavioral Changes, Change in Appetite, Change in Libido, Confusion, Depression, Difficulty Concentrating, Hallucinations, Homicidal Ideation, Hopelessness, Irritability, Memory Loss, Mood Swings, Panic Attacks, Paranoia, Suicidal Ideation, Visual Hallucinations, Tactile Hallucinations, Other - Endocrine Endocrine: absent: As Per HPI, Change in Body Appearance, Change in Libido, Cold Intolorance, Deepening of Voice, Excessive Sweating, Fatigue, Flushing, Heat Int olorance, Increase in Ring/Shoe/Hat Size, Palpitations, Polydipsia, Polyphagia, Polyuria, Other Past Patient History - Past Medical History & Family History Past Medical History?: No - Past Social History Smoking Status: Former Smoker - PULMONARY Hx Asthma: Yes Hx Bronchitis: Yes - HEMATOLOGICAL/ONCOLOGICAL Hx Cancer: Yes (pancreatic) - MUSCULOSKELETAL/RHEUMATOLOGICAL Hx Arthritis: Yes - GASTROINTESTINAL Hx Gastroesophageal Reflux: Yes - PSYCHIATRIC Hx Substance Use: No - SURGICAL HISTORY Hx Cholecystectomy: Yes - ANESTHESIA Hx Anesthesia: Yes Hx Anesthesia Reactions: No Meds Allergies/Adverse Reactions: Allergies Allergy/AdvReac Type Severity Reaction Status Date / Time shellfish derived Allergy Severe SHORTNESS Verified 05/19/18 09:42 OF BREATH - Medications Medications: Current Medications Docusate Sodium (Colace) 100 mg PO BID [facility] Last Admin: 05/20/18 10:19 Dose: 100 mg Folic Acid (Folic Acid) 1 mg PO DAILY [facility] Last Admin: 05/20/18 10:19 Dose: 1 mg Piperacillin Sod/Tazobactam (Sod 3.375 gm/ Sodium Chloride) 100 mls @ 200 mls/hr IVPB Q6H [facility]; Protocol Last Admin: 05/20/18 11:36 Dose: 200 mls/hr Dextrose/Sodium Chloride (Dextrose 5%/0.9% Ns 1000 Ml) 1,000 mls @ 75 mls/hr IV .[id number] [facility] Last Admin: 05/20/18 11:48 Dose: 75 mls/hr Metronidazole 250 mg/ (Miscellaneous) 50 mls @ 100 mls/hr IVPB Q8H [facility]; Protocol Last Admin: 05/20/18 11:36 Dose: 100 mls/hr Influenza Virus Vaccine (Fluzone Quad [id number]) 60 mcg IM .ONCE ONE Stop: 05/21/18 10:01 Mirtazapine (Remeron) 7.5 mg PO [facility] Last Admin: 05/19/18 21:37 Dose: 7.5 mg Morphine Sulfate (Morphine Extended Release Tab) 30 mg PO Q8 [facility] Last Admin: 05/20/18 13:47 Dose: 30 mg Multivitamins (Hexavitamin) 1 tab PO DAILY [facility] Last Admin: 05/20/18 10:19 Dose: 1 tab Oxycodone HCl (Oxycodone Immediate Release Tab) 5 mg PO Q3 PRN PRN Reason: Pain, moderate (4-7) Last Admin: 05/20/18 11:48 Dose: 5 mg Pantoprazole Sodium (Protonix Ec Tab) 20 mg PO DAILY [facility] Last Admin: 05/20/18 10:19 Dose: 20 mg Rivaroxaban (Xarelto) 15 mg PO BID [facility] Last Admin: 05/20/18 10:19 Dose: 15 mg Sennosides (Senokot Tab) 8.6 mg PO BID [facility] Last Admin: 05/20/18 10:19 Dose: 8.6 mg Physical Exam - Constitutional Appears: No Acute Distress, Cachectic, Chronically Ill - Head Exam Head Exam: ATRAUMATIC, NORMAL INSPECTION, NORMOCEPHALIC - Eye Exam Eye Exam: EOMI, PERRL. absent: Scleral icterus - ENT Exam ENT Exam: Mucous Membranes Dry - Neck Exam Neck exam: Negative for: Lymphadenopathy - Respiratory Exam Respiratory Exam: Decreased Breath Sounds, Prolonged Expiratory Phase, Rhonchi - Cardiovascular Exam Cardiovascular Exam: REGULAR RHYTHM, +S1, +S2 - GI/Abdominal Exam GI & Abdominal Exam: Distended, Firm, Guarding, Soft, Tenderness. absent: Rebound, Rigid - Rectal Exam Rectal Exam: Deferred - Exam Exam: NORMAL INSPECTION - Extremities Exam Extremities exam: Positive for: pedal pulses present. Negative for: calf t enderness, pedal edema, tenderness - Back Exam Back exam: absent: CVA tenderness (L), CVA tenderness (R), paraspinal tenderness - Neurological Exam Neurological exam: Alert, CN II-XII Intact, Oriented x3, Reflexes Normal - Psychiatric Exam Psychiatric exam: Depressed - Skin Skin Exam: Dry, Intact Results - Vital Signs Recent Vital Signs: Last Vital Signs Temp 97.5 F L 05/20/18 16:14 Pulse 78 05/20/18 16:14 Resp 20 05/20/18 16:14 BP 129/93 H 05/20/18 16:14 Pulse Ox 99 05/20/18 16:14 - Labs Result Diagrams: 05/20/18 03:25 05/20/18 03:25 Labs: Laboratory Results - last 24 hr 05/19/18 05/19/18 05/20/18 20:30 23:29 03:25 WBC 23.0 H RBC 3.26 L Hgb 8.7 L Hct 26.3 L MCV 80.5 L MCH 26.6 L MCHC 33.1 RDW 16.4 H Plt Count 168 MPV 8.9 Neut % (Auto) 92.1 H Lymph % (Auto) 3.5 L [place] % (Auto) 2.7 Eos % (Auto) 0.8 Baso % (Auto) 0.9 Neut # (Auto) 21.2 H Lymph # (Auto) 0.8 L [place] # (Auto) 0.6 Eos # (Auto) 0.2 Baso # (Auto) 0.2 Neutrophils % (Manual) 93 H Band Neutrophils % 4 H Lymphocytes % (Manual) 1 L Monocytes % (Manual) 1 Basophils % (Manual) 1 Platelet Estimate Normal Sodium Potassium Chloride Carbon Dioxide Anion Gap BUN Creatinine Est GFR ( Amer) Est GFR (Non-Af Amer) Random Glucose Calcium Phosphorus Magnesium Total Bilirubin AST ALT Alkaline Phosphatase Troponin I < 0.0120 Total Protein Albumin Globulin Albumin/Globulin Ratio Triglycerides Cholesterol LDL Cholesterol Direct HDL Cholesterol Urine Color Ryann Urine Clarity Clear Urine pH 5.0 Ur Specific [place] > 1.060 H Urine Protein Negative Urine Glucose (UA) Normal Urine Ketones Trace Urine Blood Negative Urine Nitrate Negative Urine Bilirubin Negative Urine Urobilinogen 4.0 H Ur Leukocyte Esterase Neg Urine WBC (Auto) 1 Urine RBC (Auto) 9 H Ur Squamous Epith Cells 7 H Amorphous Sediment Rare H 05/20/18 03:25 WBC RBC Hgb Hct MCV MCH MCHC RDW Plt Count MPV Neut % (Auto) Lymph % (Auto) [place] % (Auto) Eos % (Auto) Baso % (Auto) Neut # (Auto) Lymph # (Auto) [place] # (Auto) Eos # (Auto) Baso # (Auto) Neutrophils % (Manual) Band Neutrophils % Lymphocytes % (Manual) Monocytes % (Manual) Basophils % (Manual) Platelet Estimate Sodium 141 Potassium 4.0 Chloride 104 Carbon Dioxide 33 H Anion Gap 8 L BUN 16 Creatinine 0.5 L Est GFR ( Amer) > 60 Est GFR (Non-Af Amer) > 60 Random Glucose 126 H Calcium 7.9 L Phosphorus 3.5 Magnesium 1.7 Total Bilirubin 1.2 AST 65 H ALT 31 Alkaline Phosphatase 307 H Troponin I < 0.0120 Total Protein 6.2 L Albumin 2.4 L Globulin 3.8 Albumin/Globulin Ratio 0.6 L Triglycerides 154 H Cholesterol 103 LDL Cholesterol Direct 70 HDL Cholesterol 16 L Urine Color Urine Clarity Urine pH Ur Specific [place] Urine Protein Urine Glucose (UA) Urine Ketones Urine Blood Urine Nitrate Urine Bilirubin Urine Urobilinogen Ur Leukocyte Esterase Urine WBC (Auto) Urine RBC (Auto) Ur Squamous Epith Cells Amorphous Sediment Assessment & Plan (1) Pancreatic cancer Status: Acute (2) Sepsis Status: Acute (3) Toxic metabolic encephalopathy Status: Acute (4) Pancreatic cancer metastasized to liver Status: Acute - Assessment and Plan (Free Text) Assessment: await cultures cont hydration, IV antibiotics, supportive measures poor prognosis
--- NOTE | 2018-05-20 23:12 | PN ---
DATE: 05/20/2018 SUBJECTIVE: The patient was seen and examined at bedside. The patient is complaining of abdominal discomfort and epigastric pain. Denies any new complaints. PHYSICAL EXAMINATION: GENERAL: Middle-aged thin built female, lying in bed, in no acute distress. VITAL SIGNS: Blood pressure 129/93, pulse 78, respirations 20, temperature 97.5 degrees Fahrenheit, O2 sat is 99% on nasal cannula. Intake is 560 mL. Output is 250 mL. HEENT: Pupils equal, round, and reacting to light and accommodation. Extraocular muscles intact. No icterus. Positive pallor. No oral thrush. Dry mucous membranes. NECK: Supple. No JVD. LUNGS: Bilateral vesicular breath sounds. No wheezing. No rhonchi. CARDIOVASCULAR SYSTEM: S1 and S2 present, regular. ABDOMEN: Soft. Bowel sounds present. Distended. Nontender. No guarding. No rigidity. MEDICATIONS: Include D5 normal saline at 75 mL an hour, Colace 100 mg p.o. b.i.d., folic acid 1 mg daily, Flagyl 250 mg IV every 8 hours, Remeron 7.5 mg p.o. at bedtime, morphine 30 mg p.o. every 8 hours, multivitamin daily, oxycodone 5 mg p.o. every 3 hours p.r.n., Protonix 20 mg daily, Zosyn 3.375 g IV every 6 hours, Xarelto 15 mg p.o. b.i.d., Senokot 8.6 mg p.o. b.i.d. LABORATORY DATA: Labs from today; WBC 23,000, hemoglobin 8.7, hematocrit 26.3, platelets 168. Sodium 141, potassium 4, chloride 104, bicarbonate 33, BUN 16, creatinine 0.5, glucose 126. Calcium 7.9, phosphorus 3.5, magnesium 1.7, total bilirubin 1.2, AST 65, ALT 31, alkaline phosphatase 307. Cardiac enzymes x3 negative. Total protein 6.2, albumin 2.4. UA, specific gravity 1.060, pH 5, rbc 9. Blood cultures so far negative. ASSESSMENT AND PLAN: Middle-aged female with history of deep venous thrombosis, pulmonary embolism, metastatic pancreatic cancer with metastasis to liver and omentum on long-term anticoagulation. Admitted for altered mental status, possible metabolic encephalopathy, rule out transient ischemic attack, possible sepsis, anemia, coagulopathy, hyperbilirubinemia with abnormal liver function test. Continue with Xarelto. Continue with IV hydration. Culture so far negative. Continue with Zosyn and Flagyl. Await stool culture results. Request palliative care consult. Infectious disease consult appreciated. Awaiting for medical records from [facility]. Continue with supportive care. Prognosis is guarded. Patient's family at bedside. Syed Cheema MD
[2018-05-21] MEDS: metroNIDAZOLE IV 500 mg/100 ml 250 MG in Premixed IV 1 EA IVPB SCH ×3 (02:55→18:55)
[2018-05-21] MEDS: Piperacillin/Tazobact 3.375 GM in Sodium Chloride 100 ML IVPB SCH ×4 (04:35→23:57)
[2018-05-21] MEDS: Morphine 30 mg SR Tab PO SCH ×3 (06:10→21:18)
[2018-05-21] MEDS: Dextrose 5%/0.9% NS 1,000 ML IV SCH ×2 (06:57→11:30)
[2018-05-21] MEDS: Pantoprazole 20 mg EC Tab PO SCH (10:00)
[2018-05-21] MEDS ORDERED: Influenza Vaccine 60 MCG/0.5 ML SYR (3 yr & up) IM ONE (10:00)
[2018-05-21] MEDS: Multiple Vitamins Tab PO SCH (10:01)
[2018-05-21] MEDS: oxyCODONE 5 mg Immediate Release Tab PO PRN ×2 (10:01→17:12)
--- NOTE | 2018-05-21 11:33 | CP.PCM.PN ---
Subjective - Date & Time of Evaluation Date of Evaluation: 05/21/18 Time of Evaluation: 07:00 - Subjective Subjective: afeb on IV rx less pain Objective - Vital Signs/Intake and Output Vital Signs (last 24 hours): Temp Pulse Resp BP Pulse Ox 97.3 F L 111 H 18 123/84 97 05/21/18 07:00 05/21/18 07:00 05/21/18 07:00 05/21/18 07:00 05/21/18 07:00 Intake and Output: 05/21/18 05/21/18 06:59 18:59 Intake Total 1360 Balance 1360 - Medications Medications: Current Medications Docusate Sodium (Colace) 100 mg PO BID [facility] Last Admin: 05/21/18 10:01 Dose: 100 mg Folic Acid (Folic Acid) 1 mg PO DAILY [facility] Last Admin: 05/21/18 10:00 Dose: 1 mg Piperacillin Sod/Tazobactam (Sod 3.375 gm/ Sodium Chloride) 100 mls @ 200 mls/hr IVPB Q6H [facility]; Protocol Last Admin: 05/21/18 04:35 Dose: 200 mls/hr Dextrose/Sodium Chloride (Dextrose 5%/0.9% Ns 1000 Ml) 1,000 mls @ 75 mls/hr IV .[id number] [facility] Last Admin: 05/21/18 11:30 Dose: Not Given Metronidazole 250 mg/ (Miscellaneous) 50 mls @ 100 mls/hr IVPB Q8H [facility]; Protocol Last Admin: 05/21/18 02:55 Dose: 100 mls/hr Mirtazapine (Remeron) 7.5 mg PO HS [facility] Last Admin: 05/20/18 22:32 Dose: 7.5 mg Morphine Sulfate (Morphine Extended Release Tab) 30 mg PO Q8 [facility] Last Admin: 05/21/18 06:10 Dose: Not Given Multivitamins (Hexavitamin) 1 tab PO DAILY [facility] Last Admin: 05/21/18 10:01 Dose: 1 tab Oxycodone HCl (Oxycodone Immediate Release Tab) 5 mg PO Q3 PRN PRN Reason: Pain, moderate (4-7) Last Admin: 05/21/18 10:01 Dose: 5 mg Pantoprazole Sodium (Protonix Ec Tab) 20 mg PO DAILY [facility] Last Admin: 05/21/18 10:00 Dose: 20 mg Rivaroxaban (Xarelto) 15 mg PO BID [facility] Last Admin: 05/20/18 22:32 Dose: 15 mg Sennosides (Senokot Tab) 8.6 mg PO BID [facility] Last Admin: 05/21/18 10:00 Dose: 8.6 mg - Labs Labs: 05/20/18 03:25 05/20/18 03:25 PT 34.6 SECONDS (9.7-12.2) H 05/19/18 09:06 INR 3.2 H* 05/19/18 09:06 APTT 31 SECONDS (21-34) 05/19/18 09:06 - Constitutional Appears: Cachectic, Chronically Ill - Head Exam Head Exam: NORMOCEPHALIC - Eye Exam Eye Exam: absent: Scleral icterus - ENT Exam ENT Exam: Mucous Membranes Dry - Neck Exam Neck Exam: absent: Lymphadenopathy - Respiratory Exam Respiratory Exam: Decreased Breath Sounds - Cardiovascular Exam Cardiovascular Exam: REGULAR RHYTHM - GI/Abdominal Exam GI & Abdominal Exam: Distended, Tenderness - Rectal Exam Rectal Exam: Deferred - Exam Exam: NORMAL INSPECTION - Back Exam Back Exam: absent: CVA tenderness (L), CVA tenderness (R) - Neurological Exam Neurological Exam: Alert, Awake Assessment and Plan (1) Pancreatic cancer Status: Acute (2) Sepsis Status: Acute (3) Toxic metabolic encephalopathy Status: Acute (4) Pancreatic cancer metastasized to liver Status: Acute - Assessment and Plan (Free Text) Assessment: cont iv rx min 5-7 days
--- NOTE | 2018-05-21 14:53 | CP.PCM.CON ---
History of Present Illness - History of Present Illness History of Present Illness: Palliative consult requested by Doctor Marcell for goals of care discussion, stage IV pancreatic cancer Patiebt is a 67 yo female admitted feom home with AMS. Per daughter's report, patient was last seen at her base line just night before admission at [address] on admission negative acute findings. CT abdomen was significant for pancreass mass, ascites and questionable pertoneal carcinoma. S/P paracentesis. Diagnosed with sepsis and Flagyl IV and Zosyn IV started. WBC dropped to 23.0 from 27.0, Hb 8.7 down from 10.0, PT 34.6, INR 3.2, cultures negative. Neuro consult called and impression was that AMS was result of acute encephalopathy. Patient is back to her normal today. PMH: stage IV pancreatic cancer with mets to liver, on Xarelto for DVT Soc. Hx: , lives in [place] , has multiple children with significant age differences among them, the oldest daughter lives in [facility]. Hx: denied Review of Systems - Constitutional Constitutional: Anorexia, Malaise, Weakness - EENT Eyes: absent: As Per HPI, Blind Spots, Blurred Vision, Change in Vision, Decreased Night Vision, Diplopia, Discharge, Dry Eye, Exophthalmos, Floaters, Irritation, Itchy Eyes, Loss of Peripheral Vision, Pain, Photophobia, Requires Corrective Lenses, Sees Flashes, Spots in Vision, Tunnel Vision, Other Visual Di sturbances, Loss of Vision, Other Ears: absent: As Per HPI, Decreased Hearing, Ear Discharge, Ear Pain, Tinnitus, Abnormal Hearing, Disequilibrium, Dizziness, Other Nose/Mouth/Throat: absent: As Per HPI, Epistaxis, Nasal Congestion, Nasal Discharge, Nasal Obstruction, Nasal Trauma, Nose Pain, Post Nasal Drip, Sinus Pain, Sinus Pressure, Bleeding Gums, Change in Voice, Dental Pain, Dry Mouth, Dysphagia, Halitosis, Hoarsness, Lip Swelling, Mouth Lesions, Mouth Pain, Odynophagia, Sore Throat, Throat Swelling, Tongue Swelling, Facial Pain, Neck Pain, Neck Mass, Other - Breasts Breasts: absent: As Per HPI, Change in Shape, Mass, Pain, Nipple Discharge, Nipple Inversion, Skin Changes, Swelling, Other - Cardiovascular Cardiovascular: absent: As Per HPI, Acrocyanosis, Chest Pain, Chest Pain at Rest, Chest Pain with Activity, Claudication, Diaphoresis, Dyspnea, Dyspnea on Exertion, Edema, Irregular Heart Rhythm, Pain Radiating to Arm/Neck/Jaw, Leg Edema, Leg Ulcers, Lightheadedness, Orthopnea, Palpitations, Paroxysmal Nocturnal Dyspnea, Pedal Edema, Radiating Pain, Rapid Heart Rate, Slow Heart Rate, Syncope, Other - Respiratory Respiratory: absent: As Per HPI, Cough, Dyspnea, Hemoptysis, Dyspnea on Exertion, Wheezing, Snoring, Stridor, Pain on Inspiration, Chest Congestion, Excessive Mucous Production, Change in Mucous Color, Pain with Coughing, Other - Gastrointestinal Gastrointestinal: Bloating - Genitourinary Genitourinary: absent: As Per HPI, Change in Urinary Stream, Difficulty Urinating, Dysuria, Flank Pain, Hematuria, Pyuria, Nocturia, Urinary Incontinence, Urinary Frequency, Urinary Hesitance, Urinary Urgency, Voiding Freq/Small Amts, Freq UTI, Hx Renal/Bladder Calculi, Hx /Renal Surgery, Bladder Distension, Other - Reproductive: Female Reproductive:Female: Post Menopausal - Menstruation Menstruation: Post Menopausal - Musculoskeletal Musculoskeletal: Muscle Weakness - Integumentary Integumentary: Dry Skin - Neurological Neurological: absent: As Per HPI, Abnormal Gait, Abnormal Hearing, Abnormal Movements, Abnormal Speech, Behavioral Changes, Burning Sensations, Confusion, Convulsions, Disequilibrium, Dizziness, Numbness, Focal Weakness, Frequent Falls, Headaches, Lack of Coordination, Loss of Vision, Memory Loss, Pares thesias, Radicular Pain, Restless Legs, Sensory Deficit, Syncope, Tingling, Tremor, Vertigo, Weakness, Other Visual Disturbances, Other - Psychiatric Psychiatric: absent: As Per HPI, Abnormal Sleep Pattern, Anhedonia, Anxiety, Auditory Hallucinations, Behavioral Changes, Change in Appetite, Change in Libido, Confusion, Depression, Difficulty Concentrating, Hallucinations, Homicidal Ideation, Hopelessness, Irritability, Memory Loss, Mood Swings, Panic Attacks, Paranoia, Suicidal Ideation, Visual Hallucinations, Tactile Hallucinations, Other - Endocrine Endocrine: absent: As Per HPI, Change in Body Appearance, Change in Libido, Cold Intolorance, Deepening of Voice, Excessive Sweating, Fatigue, Flushing, Heat Intolorance, Increase in Ring/Shoe/Hat Size, Palpitations, Polydipsia, Polyphagia, Polyuria, Other - Hematologic/Lymphatic Hematologic: Easy Bleeding Past Patient History - Past Medical History & Family History Past Medical History?: No - Past Social History Smoking Status: Former Smoker - PULMONARY Hx Asthma: Yes Hx Bronchitis: Yes - HEMATOLOGICAL/ONCOLOGICAL Hx Cancer: Yes (pancreatic) - MUSCULOSKELETAL/RHEUMATOLOGICAL Hx Arthritis: Yes - GASTROINTESTINAL Hx Gastroesophageal Reflux: Yes - PSYCHIATRIC Hx Substance Use: No - SURGICAL HISTORY Hx Cholecystectomy: Yes - ANESTHESIA Hx Anesthesia: Yes Hx Anesthesia Reactions: No Meds Allergies/Adverse Reactions: Allergies Allergy/AdvReac Type Severity Reaction Status Date / Time shellfish derived Allergy Severe SHORTNESS Verified 05/19/18 09:42 OF BREATH - Medications Medications: Current Medications Docusate Sodium (Colace) 100 mg PO BID [facility] Last Admin: 05/21/18 10:01 Dose: 100 mg Folic Acid (Folic Acid) 1 mg PO DAILY [facility] Last Admin: 05/21/18 10:00 Dose: 1 mg Piperacillin Sod/Tazobactam (Sod 3.375 gm/ Sodium Chloride) 100 mls @ 200 mls/hr IVPB Q6H [facility]; Protocol Last Admin: 05/21/18 11:58 Dose: 200 mls/hr Dextrose/Sodium Chloride (Dextrose 5%/0.9% Ns 1000 Ml) 1,000 mls @ 75 mls/hr IV .[id number] [facility] Last Admin: 05/21/18 11:30 Dose: Not Given Metronidazole 250 mg/ (Miscellaneous) 50 mls @ 100 mls/hr IVPB Q8H [facility]; Protocol Last Admin: 05/21/18 13:49 Dose: 100 mls/hr Mirtazapine (Remeron) 7.5 mg PO HS [facility] Last Admin: 05/20/18 22:32 Dose: 7.5 mg Morphine Sulfate (Morphine Extended Release Tab) 30 mg PO Q8 [facility] Last Admin: 05/21/18 13:55 Dose: 30 mg Multivitamins (Hexavitamin) 1 tab PO DAILY [facility] Last Admin: 05/21/18 10:01 Dose: 1 tab Oxycodone HCl (Oxycodone Immediate Release Tab) 5 mg PO Q3 PRN PRN Reason: Pain, moderate (4-7) Last Admin: 05/21/18 10:01 Dose: 5 mg Pantoprazole Sodium (Protonix Ec Tab) 20 mg PO DAILY [facility] Last Admin: 05/21/18 10:00 Dose: 20 mg Rivaroxaban (Xarelto) 15 mg PO BID [facility] Last Admin: 05/21/18 10:00 Dose: 15 mg Sennosides (Senokot Tab) 8.6 mg PO BID [facility] Last Admin: 05/21/18 10:00 Dose: 8.6 mg Physical Exam - Constitutional Appears: Chronically Ill - Head Exam Head Exam: ATRAUMATIC, NORMAL INSPECTION, NORMOCEPHALIC - Eye Exam Eye Exam: EOMI, Normal appearance, PERRL Pupil Exam: NORMAL ACCOMODATION, PERRL - ENT Exam ENT Exam: Mucous Membranes Dry, Normal Exam - Neck Exam Neck exam: Positive for: Normal Inspection - Respiratory Exam Respiratory Exam: Decreased Breath Sounds, NORMAL BREATHING PATTERN - Cardiovascular Exam Cardiovascular Exam: Tachycardia, REGULAR RHYTHM, +S1, +S2 - GI/Abdominal Exam GI & Abdominal Exam: Distended, Firm, Guarding - Rectal Exam Rectal Exam: Deferred - Exam Exam: NORMAL INSPECTION - Extremities Exam Extremities exam: Positive for: pedal edema - Back Exam Back exam: NORMAL INSPECTION - Neurological Exam Neurological exam: Alert, Oriented x3 - Psychiatric Exam Psychiatric exam: Normal Affect, Normal Mood - Skin Skin Exam: Pallor Results - Vital Signs Recent Vital Signs: Last Vital Signs Temp 97.3 F L 05/21/18 07:00 Pulse 111 H 05/21/18 07:00 Resp 18 05/21/18 07:00 BP 123/84 05/21/18 07:00 Pulse Ox 97 05/21/18 07:00 - Labs Result Diagrams: 05/20/18 03:25 05/20/18 03:25 Labs: Laboratory Results - last 24 hr 05/19/18 05/19/18 05/20/18 08:59 09:46 03:25 POC Glucose (mg/dL) 109 295 H Hemoglobin A1c 5.1 Assessment & Plan - Assessment and Plan (Free Text) Assessment: Palliative consult Full Code, there is no Advance directive on chart, PPS 20% I reviewed medical records, all diagnostic studies, examined patient in the bed and discussed goals of care with her daughter Dai Patient is alert, oriented X3, looking very sick, pale skin with yellow undertone and yellowish sclera. Luxem[place]ish speaking only. Patient is very weak, needs max assistance in getting OOB. Breathing is diminished, RR regular, no cough. Abdomen distended, firm, guarded mostly to right side. Denies nausea/ vomiting. Edema to LEs. Pedal pulses present. Denies pain at present. Goals of care discussed with patient's daughter at bed side. She states being shocked by sudden development of symptoms. Per daughter Dai,patient had no complains suggesting cancer. Patient lives with her younger children at [place] and once she become this sick, the older daughter brought her in here for Medical attention. I discussed the nature of pancreatic cancer and poor prognosis. The daughter stated understanding. Code status discussed. The daughter stated that her mother told her to allow her natural if her condition worsens. The daughter agreed with mother's decision but also feels she should talk about this with the rest of siblings. I supported her. We agreed to meet again tomorrow and continue discussion. Impression * Metastatic disease * Weakness * Abdominal discomfort due to cancer * Prognosis is poor * Patient advocates for natural , but her children want to talk it over before deciding * Anticipatory grieving among the children Suggestions * Assist with ADLs * Monitor for worsening of abdominal ascites * Promote comfort * Monitor Hb level * Patient should be made DNR/DNI ( is to be decided tomorrow) * Comfort care would be appropriate for this very sick patient ( will discuss in am ) Palliative care will meet with patient and fmily again in am and finalize Code status discussion. Advance care planing 46 min
--- NOTE | 2018-05-21 15:14 | CP.PCM.PN ---
Subjective - Date & Time of Evaluation Date of Evaluation: 05/21/18 Time of Evaluation: 15:13 - Subjective Subjective: Progress note dictated #[id number] Objective - Vital Signs/Intake and Output Vital Signs (last 24 hours): Temp Pulse Resp BP Pulse Ox 97.3 F L 111 H 18 123/84 97 05/21/18 07:00 05/21/18 07:00 05/21/18 07:00 05/21/18 07:00 05/21/18 07:00 Intake and Output: 05/21/18 05/21/18 06:59 18:59 Intake Total 1360 Balance 1360 - Medications Medications: Current Medications Docusate Sodium (Colace) 100 mg PO BID [facility] Last Admin: 05/21/18 10:01 Dose: 100 mg Folic Acid (Folic Acid) 1 mg PO DAILY [facility] Last Admin: 05/21/18 10:00 Dose: 1 mg Piperacillin Sod/Tazobactam (Sod 3.375 gm/ Sodium Chloride) 100 mls @ 200 mls/hr IVPB Q6H [facility]; Protocol Last Admin: 05/21/18 11:58 Dose: 200 mls/hr Dextrose/Sodium Chloride (Dextrose 5%/0.9% Ns 1000 Ml) 1,000 mls @ 75 mls/hr IV .[id number] [facility] Last Admin: 05/21/18 11:30 Dose: Not Given Metronidazole 250 mg/ (Miscellaneous) 50 mls @ 100 mls/hr IVPB Q8H [facility]; Protocol Last Admin: 05/21/18 13:49 Dose: 100 mls/hr Mirtazapine (Remeron) 7.5 mg PO HS [facility] Last Admin: 05/20/18 22:32 Dose: 7.5 mg Morphine Sulfate (Morphine Extended Release Tab) 30 mg PO Q8 [facility] Last Admin: 05/21/18 13:55 Dose: 30 mg Multivitamins (Hexavitamin) 1 tab PO DAILY [facility] Last Admin: 05/21/18 10:01 Dose: 1 tab Oxycodone HCl (Oxycodone Immediate Release Tab) 5 mg PO Q3 PRN PRN Reason: Pain, moderate (4-7) Last Admin: 05/21/18 10:01 Dose: 5 mg Pantoprazole Sodium (Protonix Ec Tab) 20 mg PO DAILY [facility] Last Admin: 05/21/18 10:00 Dose: 20 mg Rivaroxaban (Xarelto) 15 mg PO BID [facility] Last Admin: 05/21/18 10:00 Dose: 15 mg Sennosides (Senokot Tab) 8.6 mg PO BID [facility] Last Admin: 05/21/18 10:00 Dose: 8.6 mg - Labs Labs: 05/20/18 03:25 05/20/18 03:25 PT 34.6 SECONDS (9.7-12.2) H 05/19/18 09:06 INR 3.2 H* 05/19/18 09:06 APTT 31 SECONDS (21-34) 05/19/18 09:06
--- NOTE | 2018-05-21 21:13 | CP.PCM.CON ---
History of Present Illness - History of Present Illness History of Present Illness: 67 year old female with a history of untreated stage IV pancreatic cancer diagnosed recently in [place], DVT on anticoagulation, presenting with AMS and infection on antibiotics. The patient reports to undergoing a biopsy which confirmed pancreatic acner in [place]. She elected to move up to [place] to be with family and undergo treatment here. Her daughter notes to a blank look on her face and not responding to her for several minutes. She was brought to the ER and is currently undergoing antibiotic treatment. Review of her imaging is concerning for liver metastasis, malignant ascites and peritoneal carcinomatosis. Past medical history: Pancreatic cancer Past surgical history: Denies Family history: Aunts and uncles with cancer Social history: Former tobacco abuse Allergies: NKDA Review of systems: All remaining review of systems including HEENT, cardiovascular, respiratory, gastrointestinal, genitourinary, musculoskeletal, dermatologic, neurologic, and psychiatric are negative unless mentioned in the HPI. Past Patient History - Past Medical History & Family History Past Medical History?: No - Past Social History Smoking Status: Former Smoker - PULMONARY Hx Asthma: Yes Hx Bronchitis: Yes - HEMATOLOGICAL/ONCOLOGICAL Hx Cancer: Yes (pancreatic) - MUSCULOSKELETAL/RHEUMATOLOGICAL Hx Arthritis: Yes - GASTROINTESTINAL Hx Gastroesophageal Reflux: Yes - PSYCHIATRIC Hx Substance Use: No - SURGICAL HISTORY Hx Cholecystectomy: Yes - ANESTHESIA Hx Anesthesia: Yes Hx Anesthesia Reactions: No Meds Allergies/Adverse Reactions: Allergies Allergy/AdvReac Type Severity Reaction Status Date / Time shellfish derived Allergy Severe SHORTNESS Verified 05/19/18 09:42 OF BREATH - Medications Medications: Current Medications Docusate Sodium (Colace) 100 mg PO BID [facility] Last Admin: 05/21/18 18:55 Dose: 100 mg Folic Acid (Folic Acid) 1 mg PO DAILY [facility] Last Admin: 05/21/18 10:00 Dose: 1 mg Piperacillin Sod/Tazobactam (Sod 3.375 gm/ Sodium Chloride) 100 mls @ 200 mls/hr IVPB Q6H [facility]; Protocol Last Admin: 05/21/18 16:31 Dose: 200 mls/hr Dextrose/Sodium Chloride (Dextrose 5%/0.9% Ns 1000 Ml) 1,000 mls @ 75 mls/hr IV .[id number] [facility] Last Admin: 05/21/18 11:30 Dose: Not Given Metronidazole 250 mg/ (Miscellaneous) 50 mls @ 100 mls/hr IVPB Q8H [facility]; Protocol Last Admin: 05/21/18 18:55 Dose: 100 mls/hr Mirtazapine (Remeron) 7.5 mg PO HS [facility] Last Admin: 05/20/18 22:32 Dose: 7.5 mg Morphine Sulfate (Morphine Extended Release Tab) 30 mg PO Q8 [facility] Last Admin: 05/21/18 13:55 Dose: 30 mg Multivitamins (Hexavitamin) 1 tab PO DAILY [facility] Last Admin: 05/21/18 10:01 Dose: 1 tab Oxycodone HCl (Oxycodone Immediate Release Tab) 5 mg PO Q3 PRN PRN Reason: Pain, moderate (4-7) Last Admin: 05/21/18 17:12 Dose: 5 mg Pantoprazole Sodium (Protonix Ec Tab) 20 mg PO DAILY [facility] Last Admin: 05/21/18 10:00 Dose: 20 mg Rivaroxaban (Xarelto) 15 mg PO BID [facility] Last Admin: 05/21/18 18:55 Dose: 15 mg Sennosides (Senokot Tab) 8.6 mg PO BID [facility] Last Admin: 05/21/18 18:55 Dose: 8.6 mg Physical Exam - Head Exam Head Exam: ATRAUMATIC - Eye Exam Eye Exam: Normal appearance - ENT Exam ENT Exam: Mucous Membranes Dry - Respiratory Exam Respiratory Exam: NORMAL BREATHING PATTERN - Cardiovascular Exam Cardiovascular Exam: +S1, +S2 - GI/Abdominal Exam GI & Abdominal Exam: Normal Bowel Sounds - Extremities Exam Extremities exam: Positive for: pedal edema - Neurological Exam Neurological exam: Oriented x3 - Psychiatric Exam Psychiatric exam: Normal Affect, Normal Mood - Skin Skin Exam: Warm Results - Vital Signs Recent Vital Signs: Last Vital Signs Temp 98.2 F 05/21/18 15:30 Pulse 104 H 05/21/18 15:30 Resp 20 05/21/18 15:30 BP 123/86 05/21/18 15:30 Pulse Ox 100 05/21/18 15:30 - Labs Result Diagrams: 05/20/18 03:25 05/20/18 03:25 Labs: Laboratory Results - last 24 hr 05/19/18 05/19/18 05/20/18 08:59 09:46 03:25 POC Glucose (mg/dL) 109 295 H Hemoglobin A1c 5.1 Assessment & Plan (1) Anemia Assessment and Plan: likely chronic disease from malignancy will check retic count, b12, folate, ferritin to further characterize Status: Acute (2) Leukocytosis Assessment and Plan: on antibiotics Status: Acute (3) DVT (deep venous thrombosis) Assessment and Plan: B/L iliac vein thrombus noted on CT on Xarelto Status: Acute (4) Pancreatic cancer Assessment and Plan: stage IV liver, peritoneal carcinomatosis, likely malignancy ascites supportive care, will review records from [place] Thank you for this interesting consult. Status: Acute
--- NOTE | 2018-05-21 23:05 | CARD ---
APPROVED REPORT Date of service: 05/19/2018 EKG Measurement Heart [id number] NC 104P [id number] <Conclusion> Sinus tachycardia with short NC Nonspecific T wave abnormality Abnormal ECG
[2018-05-22] MEDS: Dextrose 5%/0.9% NS 1,000 ML IV SCH ×2 (02:03→12:38)
--- NOTE | 2018-05-22 02:28 | PN ---
DATE: 05/21/2018 SUBJECTIVE: The patient was seen and examined at bedside. The patient is still complaining of abdominal discomfort. Denies any new complaints. PHYSICAL EXAMINATION: GENERAL: Middle-aged female, lying in bed, in no acute distress. VITAL SIGNS: Blood pressure 123/86, pulse 104, respirations 20, temperature 98.2 degrees Fahrenheit, O2 sat is 100% on nasal canula. Intake is 660 mL, output is 250 mL. HEENT: Pupils equal, round, and reacting to light and accommodation. Extraocular muscles intact. No icterus. Positive pallor. No oral thrush. Dry mucous membranes. NECK: Supple. No JVD. LUNGS: Bilateral vesicular breath sounds. No wheezing. No rhonchi. CARDIOVASCULAR SYSTEM: S1 and S2 present, regular. ABDOMEN: Soft. Distended. Diffuse tenderness noted. CENTRAL NERVOUS SYSTEM: Alert, awake, oriented x3. No focal deficits noted. EXTREMITIES: No edema. Palpable peripheral pulses. MEDICATIONS: Include D5 normal saline at 75 mL an hour, Colace 100 mg p.o. b.i.d., folic acid 1 mg daily, Flagyl 250 mg IV every 8 hours, Remeron 7.5 mg p.o. at bedtime, morphine 30 mg p.o. every 8 hours, multivitamin daily, Percocet 5 mg p.o. every 3 hours as needed, Protonix 20 mg daily, Zosyn 3.375 g IV every 6 hours, Xarelto 15 mg p.o. b.i.d., Senokot 8.6 mg p.o. b.i.d. LABORATORY DATA: Labs from yesterday: WBC 23, hemoglobin 8.7, hematocrit 26.3, platelets 168. Glucose 140, sodium 141, potassium 4, chloride 104, bicarb 33, BUN 16, creatinine 0.5. AST 65, ALT 31, alkaline phosphatase 307, albumin 2.4, total protein 6.2. ASSESSMENT AND PLAN: Middle-aged female with history of deep venous thrombosis, pulmonary embolism, stage IV pancreatic carcinoma with metastasis to liver and omentum who was recently admitted to [facility], discharged the day before coming here. Admitted for elevated white blood cell count and anemia, abdominal discomfort possibly from malignant ascites. Her white count is improving on Zosyn and Flagyl. Infectious disease consultation and oncology consultation appreciated. Infectious Disease recommending five to seven days of intravenous antibiotics. Palliative care consult requested, appreciated their input. The patient's family was given the options of treatment who will be deciding in the morning. After discussing with family members, we will continue with current therapy. Prognosis is guarded. Continue with Xarelto and pain medication. Syed Cheema MD
[2018-05-22] MEDS: metroNIDAZOLE IV 500 mg/100 ml 250 MG in Premixed IV 1 EA IVPB SCH ×3 (03:44→19:16)
[2018-05-22] MEDS: Piperacillin/Tazobact 3.375 GM in Sodium Chloride 100 ML IVPB SCH ×2 (05:10→10:50)
[2018-05-22] MEDS: Morphine 30 mg SR Tab PO SCH ×3 (05:57→21:55)
[2018-05-22 10:06] LABS: FOLATE > 20.0 ng/mL
--- NOTE | 2018-05-22 10:47 | CP.PCM.PCO ---
Physician Communication Note - Physician Communication Note Physician Communication Note: Family meeting pending for today.
[2018-05-22] MEDS: Multiple Vitamins Tab PO SCH (10:50)
[2018-05-22] MEDS: Pantoprazole 20 mg EC Tab PO SCH (10:50)
--- NOTE | 2018-05-22 14:51 | CP.PCM.PN ---
Subjective - Date & Time of Evaluation Date of Evaluation: 05/22/18 Time of Evaluation: 14:00 - Subjective Subjective: Has some abdominal pain but improved. updated pts daughter, awaiting med records from [place]. Objective - Vital Signs/Intake and Output Vital Signs (last 24 hours): Temp Pulse Resp BP Pulse Ox 98.2 F 118 H 18 132/95 H 100 05/22/18 07:00 05/22/18 07:00 05/22/18 07:00 05/22/18 07:00 05/22/18 07:00 Intake and Output: 05/22/18 05/22/18 06:59 18:59 Intake Total 1012.5 Balance 1012.5 - Medications Medications: Current Medications Docusate Sodium (Colace) 100 mg PO BID [facility] Last Admin: 05/22/18 10:50 Dose: 100 mg Folic Acid (Folic Acid) 1 mg PO DAILY [facility] Last Admin: 05/22/18 10:50 Dose: 1 mg Dextrose/Sodium Chloride (Dextrose 5%/0.9% Ns 1000 Ml) 1,000 mls @ 75 mls/hr IV .[id number] [facility] Last Admin: 05/22/18 12:38 Dose: Not Given Metronidazole 250 mg/ (Miscellaneous) 50 mls @ 100 mls/hr IVPB Q8H [facility]; Protocol Last Admin: 05/22/18 10:51 Dose: 100 mls/hr Mirtazapine (Remeron) 7.5 mg PO HS [facility] Last Admin: 05/21/18 21:19 Dose: 7.5 mg Morphine Sulfate (Morphine Extended Release Tab) 30 mg PO Q8 [facility] Last Admin: 05/22/18 13:27 Dose: 30 mg Multivitamins (Hexavitamin) 1 tab PO DAILY [facility] Last Admin: 05/22/18 10:50 Dose: 1 tab Oxycodone HCl (Oxycodone Immediate Release Tab) 5 mg PO Q3 PRN PRN Reason: Pain, moderate (4-7) Last Admin: 05/21/18 17:12 Dose: 5 mg Pantoprazole Sodium (Protonix Ec Tab) 20 mg PO DAILY [facility] Last Admin: 05/22/18 10:50 Dose: 20 mg Rivaroxaban (Xarelto) 15 mg PO BID [facility] Last Admin: 05/22/18 10:50 Dose: 15 mg Sennosides (Senokot Tab) 8.6 mg PO BID [facility] Last Admin: 05/22/18 10:50 Dose: 8.6 mg - Labs Labs: 05/20/18 03:25 05/20/18 03:25 PT 34.6 SECONDS (9.7-12.2) H 05/19/18 09:06 INR 3.2 H* 05/19/18 09:06 APTT 31 SECONDS (21-34) 05/19/18 09:06 - Head Exam Head Exam: ATRAUMATIC - Eye Exam Eye Exam: Normal appearance - ENT Exam ENT Exam: Mucous Membranes Dry - Respiratory Exam Respiratory Exam: NORMAL BREATHING PATTERN - Cardiovascular Exam Cardiovascular Exam: +S1, +S2 - GI/Abdominal Exam GI & Abdominal Exam: Normal Bowel Sounds Assessment and Plan (1) Anemia Assessment & Plan: anemia of chronic disease Status: Acute (2) Leukocytosis Assessment & Plan: on antibiotics may have reactive component from malignancy Status: Acute (3) DVT (deep venous thrombosis) Assessment & Plan: on Xarelto Status: Acute (4) Pancreatic cancer Assessment & Plan: stage IV awaiting records from [place] Status: Acute
--- NOTE | 2018-05-22 16:33 | CP.PCM.PN ---
Subjective - Date & Time of Evaluation Date of Evaluation: 05/22/18 Time of Evaluation: 16:33 - Subjective Subjective: Progress note dictated #[id number] Objective - Vital Signs/Intake and Output Vital Signs (last 24 hours): Temp Pulse Resp BP Pulse Ox 98.2 F 118 H 18 132/95 H 100 05/22/18 07:00 05/22/18 07:00 05/22/18 07:00 05/22/18 07:00 05/22/18 07:00 Intake and Output: 05/22/18 05/22/18 06:59 18:59 Intake Total 1012.5 Balance 1012.5 - Medications Medications: Current Medications Docusate Sodium (Colace) 100 mg PO BID [facility] Last Admin: 05/22/18 10:50 Dose: 100 mg Folic Acid (Folic Acid) 1 mg PO DAILY [facility] Last Admin: 05/22/18 10:50 Dose: 1 mg Dextrose/Sodium Chloride (Dextrose 5%/0.9% Ns 1000 Ml) 1,000 mls @ 75 mls/hr IV .[id number] [facility] Last Admin: 05/22/18 12:38 Dose: Not Given Metronidazole 250 mg/ (Miscellaneous) 50 mls @ 100 mls/hr IVPB Q8H [facility]; Protocol Last Admin: 05/22/18 10:51 Dose: 100 mls/hr Mirtazapine (Remeron) 7.5 mg PO HS [facility] Last Admin: 05/21/18 21:19 Dose: 7.5 mg Morphine Sulfate (Morphine Extended Release Tab) 30 mg PO Q8 [facility] Last Admin: 05/22/18 13:27 Dose: 30 mg Multivitamins (Hexavitamin) 1 tab PO DAILY [facility] Last Admin: 05/22/18 10:50 Dose: 1 tab Oxycodone HCl (Oxycodone Immediate Release Tab) 5 mg PO Q3 PRN PRN Reason: Pain, moderate (4-7) Last Admin: 05/21/18 17:12 Dose: 5 mg Pantoprazole Sodium (Protonix Ec Tab) 20 mg PO DAILY [facility] Last Admin: 05/22/18 10:50 Dose: 20 mg Rivaroxaban (Xarelto) 15 mg PO BID [facility] Last Admin: 05/22/18 10:50 Dose: 15 mg Sennosides (Senokot Tab) 8.6 mg PO BID [facility] Last Admin: 05/22/18 10:50 Dose: 8.6 mg - Labs Labs: 05/20/18 03:25 05/20/18 03:25 PT 34.6 SECONDS (9.7-12.2) H 05/19/18 09:06 INR 3.2 H* 05/19/18 09:06 APTT 31 SECONDS (21-34) 05/19/18 09:06
--- NOTE | 2018-05-22 19:10 | CARD ---
APPROVED REPORT Date of service: 05/21/2018 EXAM: Two-dimensional and M-mode echocardiogram with Doppler and color Doppler. Other Information Quality : Technically LimitedRhythm : INDICATION Asthma 2D DIMENSIONS IVSd0.6 (0.7-1.1cm)Aortic Root (2D)2.5 (2.0-3.7cm) LVDd3.4 (3.9-5.9cm)PWd0.8 (0.7-1.1cm) LVDs2.4 (2.5-4.0cm)FS (%) 28.6 % LVEF (%)56.3 (>50%)IVC0.00 cm M-Mode DIMENSIONS Left Atrium (MM)2.86 (2.5-4.0cm)IVSd0.94 (0.7-1.1cm) Aortic Root2.77 (2.2-3.7cm)LVDd5.43 (4.0-5.6cm) Aortic Cusp Exc.1.30 (1.5-2.0cm)PWd0.81 (0.7-1.1cm) FS (%) 32 %LVDs3.71 (2.0-3.8cm) TAPSE11.28 cmLVEF (%)59 (>50%) Mitral Valve MV E Sezcgntm47.6cm/sMV A Advgmumk15.5cm/s TDI Lateral E' Peak V4.03cm/sMedial E' Peak V8.55cm/s Tricuspid Valve TR Peak Rvetexip087wu/sTR Peak Gr.30kuXmFNQA12myLl <Conclusion> very poor window. la,lv & ra rv size appears normal. normal lv & rv systolic function with lvef of 55-60%. mitral appears normal. aortic,tv & pv not well seen to comment. no pericardial effusion. normal size aortic root. m mode is not reliable. mild tr with calculated pulmonary systolic pressures of 35 mm of hg,, borderline pulmonary hypertension.
[2018-05-22] MEDS: Piperacill/Tazo 3.375gm in Dex 3.375 GM/50 ML BAG IVPB SCH (22:36)
--- NOTE | 2018-05-23 02:43 | PN ---
DATE: 05/22/2018 SUBJECTIVE: The patient was seen and examined at bedside. The patient is denying any new complaints other than abdominal discomfort. Denies any nausea or vomiting. PHYSICAL EXAMINATION GENERAL: Middle-aged female, lying in bed, in no acute distress. VITAL SIGNS: Blood pressure 124/85, pulse 111, temperature 97.7 degrees Fahrenheit, respirations 18, O2 sat is 100%. HEENT: Pupils equal, round and reacting to light and accommodation. Extraocular muscles intact. No icterus. Positive pallor. No oral thrush. Dry mucous membranes. NECK: Supple. No JVD. LUNGS: Bilateral vesicular breath sounds. No wheezing. CARDIOVASCULAR SYSTEM: S1 and S2 present, regular. ABDOMEN: Soft. Distended. Bowel sounds present. Diffuse tenderness noted. CENTRAL NERVOUS SYSTEM: Alert, awake, oriented x3. No focal deficits noted. EXTREMITIES: No edema. Palpable peripheral pulses. MEDICATIONS: Include D5 normal saline 75 mL an hour, Colace 100 mg p.o. b.i.d., folic acid 1 mg daily, Flagyl 250 mg every 8 hours, Remeron 7.5 mg p.o. at bedtime, morphine sulfate 30 mg p.o. every 8 hours, multivitamin one tab daily, Percocet 5 mg p.o. every 3 hours as needed, Protonix 20 mg daily, Xarelto 15 mg p.o. b.i.d. and Senokot. LABORATORY DATA: Retic count is 1.9 today. Ferritin is 698. CA 19-9 more than 10,000. B12 is more than 1000, folate is more than 20. ASSESSMENT AND PLAN: Middle-aged female with a history of metastatic pancreatic cancer; deep venous thrombosis; pulmonary embolism, on long-term anticoagulation; anemia; elevated WBC count; possible malignant ascites. Continue with Zosyn and Flagyl. Continue with pain medications as needed. Palliative care consult appreciated. Awaiting for records. Awaiting for the patient's family's decision on her DNR status. Continue with supportive care. Syed Cheema MD [facility] # [id number]
[2018-05-23] MEDS: metroNIDAZOLE IV 500 mg/100 ml 250 MG in Premixed IV 1 EA IVPB SCH ×3 (03:00→18:58)
[2018-05-23] MEDS: Piperacill/Tazo 3.375gm in Dex 3.375 GM/50 ML BAG IVPB SCH ×3 (05:39→23:01)
[2018-05-23] MEDS: Dextrose 5%/0.9% NS 1,000 ML IV SCH ×2 (05:42→14:32)
[2018-05-23] MEDS: Morphine 30 mg SR Tab PO SCH ×3 (06:23→23:04)
[2018-05-23 08:05] LABS: BASO # 0.1 K/uL (0.0-0.2); BASO % 0.5 % (0.0-2.0); EOS # 0.1 K/uL (0.0-0.7); EOS % 0.4 % (0.0-4.0); HEMOGLOBIN 9.6 g/dL (11.0-16.0); LYMPH # 1.5 K/uL (1.0-4.3); LYMPH % 6.9 % (20.0-40.0); MEAN CELL VOLUME 81.6 fL (81.0-99.0); MEAN CORPUSCULAR HEMOGLOBIN 27.3 pg (27.0-31.0); MEAN CORPUSCULAR HGB CONC 33.4 g/dL (33.0-37.0); MEAN PLATELET VOLUME 9.4 fL (7.2-11.7); MONO # 1.4 K/uL (0.0-0.8); MONO % 6.6 % (0.0-10.0); NEUT # 18.6 K/uL (1.8-7.0); NEUT % 85.6 % (50.0-75.0); NRBC % 0.1 % (0.0-2.0); PLATELET COUNT 157 K/uL (130-400); RED CELL DISTRIBUTION WIDTH 17.1 % (11.5-14.5); WHITE BLOOD COUNT 21.8 K/uL (4.8-10.8)
[2018-05-23 08:18] LABS: ALB/GLOB RATIO 0.6 (1.0-2.1); ALBUMIN 2.2 g/dL (3.5-5.0); ALT/SGPT 30 U/L (9-52); AST/SGOT 75 U/L (14-36); BLOOD UREA NITROGEN 13 mg/dL (7-17); GFR NON-AFRICAN AMERICAN > 60
[2018-05-23 10:13] LABS: ANISOCYTOSIS SLIGHT; BANDS 1 % (0-2); BASOPHIL 1 % (0-2); EOSINOPHIL 1 % (0-4); HYPOCHROMIC SLIGHT; LYMPHOCYTE 5 % (20-40); MONOCYTE 5 % (0-10); NEUTROPHIL 87 % (50-75); PLATELET ESTIMATE NORMAL (NORMAL); POIKILOCYTOSIS SLIGHT; TARGET CELLS SLIGHT; TOTAL CELLS COUNTED 100
--- NOTE | 2018-05-23 10:20 | CP.PCM.PN ---
Subjective - Date & Time of Evaluation Date of Evaluation: 05/23/18 Time of Evaluation: 10:20 - Subjective Subjective: Progress note dictated # [id number] Objective - Vital Signs/Intake and Output Vital Signs (last 24 hours): Temp Pulse Resp BP Pulse Ox 97.9 F 115 H 18 136/96 H 100 05/23/18 07:00 05/23/18 07:00 05/23/18 07:00 05/23/18 07:00 05/23/18 07:00 - Medications Medications: Current Medications Docusate Sodium (Colace) 100 mg PO BID [facility] Last Admin: 05/22/18 17:50 Dose: 100 mg Folic Acid (Folic Acid) 1 mg PO DAILY [facility] Last Admin: 05/22/18 10:50 Dose: 1 mg Dextrose/Sodium Chloride (Dextrose 5%/0.9% Ns 1000 Ml) 1,000 mls @ 75 mls/hr IV .[id number] [facility] Last Admin: 05/23/18 05:42 Dose: Not Given Metronidazole 250 mg/ (Miscellaneous) 50 mls @ 100 mls/hr IVPB Q8H [facility]; Protocol Last Admin: 05/23/18 03:00 Dose: 100 mls/hr Piperacillin Sod/Tazobactam Sod (Zosyn 3.375 Gm Iv Premix) 3.375 gm in 50 mls @ 200 mls/hr IVPB Q8H [facility]; Protocol Last Admin: 05/23/18 05:39 Dose: 200 mls/hr Mirtazapine (Remeron) 7.5 mg PO HS [facility] Last Admin: 05/22/18 22:53 Dose: 7.5 mg Morphine Sulfate (Morphine Extended Release Tab) 30 mg PO Q8 [facility] Last Admin: 05/23/18 06:23 Dose: 30 mg Multivitamins (Hexavitamin) 1 tab PO DAILY [facility] Last Admin: 05/22/18 10:50 Dose: 1 tab Oxycodone HCl (Oxycodone Immediate Release Tab) 5 mg PO Q3 PRN PRN Reason: Pain, moderate (4-7) Last Admin: 05/21/18 17:12 Dose: 5 mg Pantoprazole Sodium (Protonix Ec Tab) 20 mg PO DAILY [facility] Last Admin: 05/22/18 10:50 Dose: 20 mg Rivaroxaban (Xarelto) 15 mg PO BID [facility] Last Admin: 05/22/18 17:50 Dose: 15 mg Sennosides (Senokot Tab) 8.6 mg PO BID [facility] Last Admin: 05/22/18 17:50 Dose: 8.6 mg - Labs Labs: 05/23/18 07:56 05/23/18 07:56 PT 34.6 SECONDS (9.7-12.2) H 05/19/18 09:06 INR 3.2 H* 05/19/18 09:06 APTT 31 SECONDS (21-34) 05/19/18 09:06
[2018-05-23] MEDS: Multiple Vitamins Tab PO SCH (10:53)
[2018-05-23] MEDS: Pantoprazole 20 mg EC Tab PO SCH (10:53)
[2018-05-23] MEDS: oxyCODONE 5 mg Immediate Release Tab PO PRN ×3 (12:52→20:33)
[2018-05-23] MEDS ORDERED: Potassium Chloride 20 mEq ER Tab PO SCH (13:00)
[2018-05-23] MEDS: Potassium Chloride 20 mEq/15 ml LIQ UD PO SCH ×3 (14:01→20:34)
--- NOTE | 2018-05-23 18:11 | CP.PCM.PN ---
Subjective - Date & Time of Evaluation Date of Evaluation: 05/23/18 Time of Evaluation: 08:00 - Subjective Subjective: cultures neg belly less tender wbc coming down Objective - Vital Signs/Intake and Output Vital Signs (last 24 hours): Temp Pulse Resp BP Pulse Ox 97.5 F L 114 H 20 109/82 100 05/23/18 15:10 05/23/18 15:10 05/23/18 15:10 05/23/18 15:10 05/23/18 15:10 Intake and Output: 05/23/18 05/23/18 06:59 18:59 Intake Total 1005 Balance 1005 - Medications Medications: Current Medications Docusate Sodium (Colace) 100 mg PO BID [facility] Last Admin: 05/23/18 17:33 Dose: 100 mg Folic Acid (Folic Acid) 1 mg PO DAILY [facility] Last Admin: 05/23/18 10:53 Dose: 1 mg Dextrose/Sodium Chloride (Dextrose 5%/0.9% Ns 1000 Ml) 1,000 mls @ 75 mls/hr IV .[id number] [facility] Last Admin: 05/23/18 14:32 Dose: 75 mls/hr Metronidazole 250 mg/ (Miscellaneous) 50 mls @ 100 mls/hr IVPB Q8H [facility]; P rotocol Last Admin: 05/23/18 11:01 Dose: 100 mls/hr Piperacillin Sod/Tazobactam Sod (Zosyn 3.375 Gm Iv Premix) 3.375 gm in 50 mls @ 200 mls/hr IVPB Q8H [facility]; Protocol Last Admin: 05/23/18 14:03 Dose: 200 mls/hr Mirtazapine (Remeron) 7.5 mg PO HS [facility] Last Admin: 05/22/18 22:53 Dose: 7.5 mg Morphine Sulfate (Morphine Extended Release Tab) 30 mg PO Q8 [facility] Last Admin: 05/23/18 14:01 Dose: 30 mg Multivitamins (Hexavitamin) 1 tab PO DAILY [facility] Last Admin: 05/23/18 10:53 Dose: 1 tab Ondansetron HCl (Zofran Inj) 4 mg IVP DAILY@ONCE PRN PRN Reason: Nausea/Vomiting Last Admin: 05/23/18 15:05 Dose: 4 mg Oxycodone HCl (Oxycodone Immediate Release Tab) 5 mg PO Q3 PRN PRN Reason: Pain, moderate (4-7) Last Admin: 05/23/18 17:31 Dose: 5 mg Pantoprazole Sodium (Protonix Ec Tab) 20 mg PO DAILY [facility] Last Admin: 05/23/18 10:53 Dose: 20 mg Potassium Chloride (Potassium Chloride Oral Soln) 40 meq PO Q4 [facility] Stop: 05/23/18 21:13 Last Admin: 05/23/18 17:31 Dose: 40 meq Rivaroxaban (Xarelto) 15 mg PO BID [facility] Last Admin: 05/23/18 17:33 Dose: 15 mg Sennosides (Senokot Tab) 8.6 mg PO BID [facility] Last Admin: 05/23/18 17:32 Dose: 8.6 mg - Labs Labs: 05/23/18 07:56 05/23/18 07:56 PT 34.6 SECONDS (9.7-12.2) H 05/19/18 09:06 INR 3.2 H* 05/19/18 09:06 APTT 31 SECONDS (21-34) 05/19/18 09:06 - Constitutional Appears: Cachectic - Head Exam Head Exam: NORMOCEPHALIC - Eye Exam Eye Exam: absent: Scleral icterus - ENT Exam ENT Exam: Mucous Membranes Dry - Neck Exam Neck Exam: absent: Lymphadenopathy - Respiratory Exam Respiratory Exam: Decreased Breath Sounds - Cardiovascular Exam Cardiovascular Exam: REGULAR RHYTHM - GI/Abdominal Exam GI & Abdominal Exam: Distended, Tenderness, Hypoactive Bowel Sounds - Rectal Exam Rectal Exam: Deferred - Exam Exam: NORMAL INSPECTION - Extremities Exam Extremities Exam: absent: Pedal Edema - Back Exam Back Exam: absent: CVA tenderness (L), CVA tenderness (R) - Neurological Exam Neurological Exam: Alert, Awake Assessment and Plan (1) Pancreatic cancer Status: Acute (2) Sepsis Status: Acute (3) Toxic metabolic encephalopathy Status: Acute (4) Pancreatic cancer metastasized to liver Status: Acute - Assessment and Plan (Free Text) Assessment: poor prognosis cont iv rx for 7 days
--- NOTE | 2018-05-23 22:13 | PN ---
DATE: 05/23/2018 SUBJECTIVE: The patient was seen and examined at bedside. The patient is still complaining of abdominal discomfort and feeling tired. Denied any headache or dizziness. As per the nurses, the patient had small amounts of vomiting, clear liquids, and her symptoms improved with Zofran. Denied any other complaints. PHYSICAL EXAMINATION: GENERAL: Middle-aged female, thin built, frail looking, in no acute distress. VITAL SIGNS: Blood pressure 109/82, pulse 114, respirations 20, temperature 97.5 degrees Fahrenheit, O2 sat is 100% on 2 L nasal canula. HEENT: Pupils equal, round and reacting to light and accommodation. Extraocular muscles intact. No icterus. Mild pallor. No oral thrush. Dry mucous membranes. NECK: Supple. No JVD. LUNGS: Bilateral vesicular breath sounds. No wheezing. No rhonchi. CARDIOVASCULAR SYSTEM: S1 and S2 present, regular. ABDOMEN: Soft. Distended. Bowel sounds present. Tenderness present. CENTRAL NERVOUS SYSTEM: Alert, awake, oriented x3. No focal deficits noted. EXTREMITIES: No edema. MEDICATIONS: Include D5 normal saline at 75 mL an hour, Colace 100 mg p.o. b.i.d., folic acid 1 mg daily, Flagyl 250 mg IV every 8 hours, Remeron 7.5 mg p.o. at bedtime, morphine as needed, multivitamin daily, Protonix, Zosyn 3.375 g IV every 8 hours, KCl 40 mEq p.o. every 4 hours; 3 doses, Xarelto 15 mg p.o. b.i.d., and Senna. LABORATORY DATA: Labs from this morning: WBC 21.8, hemoglobin 9.6, hematocrit 28.6, and platelets 157. Sodium 143, potassium 3.4, chloride 108, bicarb 27, BUN 13, creatinine 0.6, glucose 122, calcium 8. Total bilirubin 1.1, AST 75, ALT 30, alkaline phosphatase 256, total protein 6.1, and albumin 2.2. ASSESSMENT AND PLAN: Middle-aged female with history of metastatic pancreatic cancer with metastasis to the liver and omentum; deep venous thrombosis; pulmonary embolism, on long-term anticoagulation; anemia; ascites with elevated white blood cell count, questionable etiology. All the cultures are negative. White count is slightly improving on Zosyn and Flagyl. We will continue with Zosyn and Flagyl as per Dr. Casas for five to seven days. The patient's family still undecided on Do Not Resuscitate and hospice status. Awaiting for family meeting. Awaiting for records from the [facility] regarding the diagnoses. Overall prognosis is very poor. The patient and patient's family understand the patient's poor prognosis. Awaiting for family meeting. Syed Cheema MD
[2018-05-24] MEDS: metroNIDAZOLE IV 500 mg/100 ml 250 MG in Premixed IV 1 EA IVPB SCH ×3 (02:33→18:30)
[2018-05-24] MEDS: oxyCODONE 5 mg Immediate Release Tab PO PRN ×2 (02:39→08:04)
[2018-05-24] MEDS: Piperacill/Tazo 3.375gm in Dex 3.375 GM/50 ML BAG IVPB SCH ×3 (06:08→21:33)
[2018-05-24] MEDS: Morphine 30 mg SR Tab PO SCH ×3 (06:09→21:33)
[2018-05-24 08:09] LABS: BASO # 0.1 K/uL (0.0-0.2); BASO % 0.3 % (0.0-2.0); EOS # 0.1 K/uL (0.0-0.7); EOS % 0.3 % (0.0-4.0); HEMOGLOBIN 9.7 g/dL (11.0-16.0); LYMPH # 1.4 K/uL (1.0-4.3); LYMPH % 5.6 % (20.0-40.0); MEAN CELL VOLUME 82.5 fL (81.0-99.0); MEAN CORPUSCULAR HEMOGLOBIN 26.8 pg (27.0-31.0); MEAN CORPUSCULAR HGB CONC 32.5 g/dL (33.0-37.0); MEAN PLATELET VOLUME 10.1 fL (7.2-11.7); MONO # 1.4 K/uL (0.0-0.8); MONO % 5.8 % (0.0-10.0); NEUT # 21.6 K/uL (1.8-7.0); NRBC % 0.1 % (0.0-2.0); PLATELET COUNT 150 K/uL (130-400); RED CELL DISTRIBUTION WIDTH 17.4 % (11.5-14.5); WHITE BLOOD COUNT 24.5 K/uL (4.8-10.8)
[2018-05-24 08:45] LABS: ALB/GLOB RATIO 0.6 (1.0-2.1); ALBUMIN 2.3 g/dL (3.5-5.0); ALT/SGPT 36 U/L (9-52); AST/SGOT 105 U/L (14-36); BLOOD UREA NITROGEN 16 mg/dL (7-17); GFR NON-AFRICAN AMERICAN > 60
[2018-05-24] MEDS: Multiple Vitamins Tab PO SCH (09:00)
[2018-05-24] MEDS: Pantoprazole 20 mg EC Tab PO SCH (09:00)
[2018-05-24 11:18] LABS: BANDS 4 % (0-2); LYMPHOCYTE 4 % (20-40); MONOCYTE 4 % (0-10); NEUTROPHIL 88 % (50-75); PLATELET ESTIMATE NORMAL (NORMAL); TOTAL CELLS COUNTED 100
[2018-05-24 11:21] LABS: ANISOCYTOSIS MODERATE; HYPOCHROMIC SLIGHT; POLYCHROMIC SLIGHT
[2018-05-24 11:24] LABS: TOXIC GRANULATION PRESENT
--- NOTE | 2018-05-24 13:06 | CP.PCM.PN ---
Subjective - Date & Time of Evaluation Date of Evaluation: 05/24/18 Time of Evaluation: 13:06 - Subjective Subjective: Patient is seen and examined at bedside. She is complaining of abdominal pain and distension. She had vomiting yesterday, better with zofran. complaining of left leg swelling. She denies any new complaints. Objective - Vital Signs/Intake and Output Vital Signs (last 24 hours): Temp Pulse Resp BP Pulse Ox 97.6 F 116 H 18 126/91 H 100 05/24/18 09:52 05/24/18 09:52 05/24/18 09:52 05/24/18 09:52 05/24/18 09:52 - Medications Medications: Current Medications Docusate Sodium (Colace) 100 mg PO BID [facility] Last Admin: 05/24/18 09:00 Dose: 100 mg Folic Acid (Folic Acid) 1 mg PO DAILY [facility] Last Admin: 05/23/18 10:53 Dose: 1 mg Dextrose/Sodium Chloride (Dextrose 5%/0.9% Ns 1000 Ml) 1,000 mls @ 75 mls/hr IV .[id number] [facility] Last Admin: 05/23/18 14:32 Dose: 75 mls/hr Metronidazole 250 mg/ (Miscellaneous) 50 mls @ 100 mls/hr IVPB Q8H [facility]; Protocol Last Admin: 05/24/18 02:33 Dose: 100 mls/hr Piperacillin Sod/Tazobactam Sod (Zosyn 3.375 Gm Iv Premix) 3.375 gm in 50 mls @ 200 mls/hr IVPB Q8H [facility]; Protocol Last Admin: 05/24/18 06:08 Dose: 200 mls/hr Mirtazapine (Remeron) 7.5 mg PO HS [facility] Last Admin: 05/23/18 23:03 Dose: Not Given Morphine Sulfate (Morphine Extended Release Tab) 30 mg PO Q8 [facility] Last Admin: 05/24/18 06:09 Dose: 30 mg Multivitamins (Hexavitamin) 1 tab PO DAILY [facility] Last Admin: 05/24/18 09:00 Dose: 1 tab Ondansetron HCl (Zofran Inj) 4 mg IVP DAILY@ONCE PRN PRN Reason: Nausea/Vomiting Last Admin: 05/23/18 15:05 Dose: 4 mg Oxycodone HCl (Oxycodone Immediate Release Tab) 5 mg PO Q3 PRN PRN Reason: Pain, moderate (4-7) Last Admin: 05/24/18 08:04 Dose: 5 mg Pantoprazole Sodium (Protonix Ec Tab) 20 mg PO DAILY [facility] Last Admin: 05/24/18 09:00 Dose: 20 mg Rivaroxaban (Xarelto) 15 mg PO BID [facility] Last Admin: 05/24/18 09:00 Dose: 15 mg Sennosides (Senokot Tab) 8.6 mg PO BID [facility] Last Admin: 05/24/18 09:02 Dose: 8.6 mg - Labs Labs: 05/24/18 07:54 05/24/18 07:54 PT 34.6 SECONDS (9.7-12.2) H 05/19/18 09:06 INR 3.2 H* 05/19/18 09:06 APTT 31 SECONDS (21-34) 05/19/18 09:06 - Constitutional Appears: No Acute Distress, Cachectic, Chronically Ill - Head Exam Head Exam: ATRAUMATIC, NORMAL INSPECTION - Eye Exam Eye Exam: EOMI, PERRL Pupil Exam: NORMAL ACCOMODATION - ENT Exam ENT Exam: Mucous Membranes Dry - Neck Exam Neck Exam: Full ROM, Normal Inspection - Respiratory Exam Respiratory Exam: Clear to Ausculation Bilateral, NORMAL BREATHING PATTERN - Cardiovascular Exam Cardiovascular Exam: Tachycardia, +S1, +S2 - GI/Abdominal Exam GI & Abdominal Exam: Distended, Firm, Normal Bowel Sounds - Rectal Exam Rectal Exam: Deferred - Extremities Exam Extremities Exam: Pedal Edema - Neurological Exam Neurological Exam: Alert, Awake, CN II-XII Intact, Oriented x3 - Skin Skin Exam: Dry, Intact, Warm Assessment and Plan - Assessment and Plan (Free Text) Assessment: Middle aged female with metastatic pancreatic cancer, PE, DVT, on anticoagulation, recently moved to [place] from [place], not on any meds for cancer, admitted to [facility] from 05/08/18-05/18/18, anemia, persistently elevated wbc counts, admitted for altered mental status, as per neurology it was secondary to metabolic causes and no further work up or treatment advised. On IV Zosyn and Flagyl as per Dr. Casas, will continue for 1 week. Continue with supportive care. Continue with Xarelto, Awaiting for records from [place]. Discussed with patient's daughter, Adis Ruiz who is patient's power of divorce attorney at length regarding her mother's medical condition and poor prognosis. She agrees for DNR/DNI and hospice care at this time. Patient is also Alert, Awake and orientedX3 and understands her medical condition, she also agrees with her daughter and wants palliative care at this time. As per family's wishes, she is made DNR. Order written. Signed consent by both patient and her daughter, documents attached to chart. Requested hospice consult.
[2018-05-24] MEDS: Dextrose 5%/0.9% NS 1,000 ML IV SCH (17:39)
[2018-05-25] MEDS: Morphine 30 mg SR Tab PO SCH ×3 (05:28→21:33)
[2018-05-25] MEDS: Piperacill/Tazo 3.375gm in Dex 3.375 GM/50 ML BAG IVPB SCH ×3 (05:28→21:35)
[2018-05-25] MEDS: Dextrose 5%/0.9% NS 1,000 ML IV SCH (07:10)
[2018-05-25] MEDS: oxyCODONE 5 mg Immediate Release Tab PO PRN ×2 (11:19→15:37)
[2018-05-25] MEDS: Multiple Vitamins Tab PO SCH (11:19)
[2018-05-25] MEDS: Pantoprazole 20 mg EC Tab PO SCH (11:20)
--- NOTE | 2018-05-25 11:52 | CP.PCM.PN ---
Subjective - Date & Time of Evaluation Date of Evaluation: 05/25/18 Time of Evaluation: 11:52 - Subjective Subjective: Progress note dictated # [id number] Objective - Vital Signs/Intake and Output Vital Signs (last 24 hours): Temp Pulse Resp BP Pulse Ox 98.3 F 120 H 18 120/83 100 05/25/18 08:40 05/25/18 08:40 05/25/18 08:40 05/25/18 08:40 05/25/18 08:40 - Medications Medications: Current Medications Docusate Sodium (Colace) 100 mg PO BID [facility] Last Admin: 05/25/18 11:20 Dose: 100 mg Folic Acid (Folic Acid) 1 mg PO DAILY [facility] Last Admin: 05/25/18 11:19 Dose: 1 mg Piperacillin Sod/Tazobactam Sod (Zosyn 3.375 Gm Iv Premix) 3.375 gm in 50 mls @ 200 mls/hr IVPB Q8H [facility]; Protocol Last Admin: 05/25/18 05:28 Dose: 200 mls/hr Mirtazapine (Remeron) 7.5 mg PO HS [facility] Last Admin: 05/24/18 21:33 Dose: 7.5 mg Morphine Sulfate (Morphine Extended Release Tab) 30 mg PO Q8 [facility] Last Admin: 05/25/18 05:28 Dose: 30 mg Multivitamins (Hexavitamin) 1 tab PO DAILY [facility] Last Admin: 05/25/18 11:19 Dose: 1 tab Ondansetron HCl (Zofran Inj) 4 mg IVP DAILY@ONCE PRN PRN Reason: Nausea/Vomiting Last Admin: 05/23/18 15:05 Dose: 4 mg Oxycodone HCl (Oxycodone Immediate Release Tab) 5 mg PO Q3 PRN PRN Reason: Pain, moderate (4-7) Last Admin: 05/25/18 11:19 Dose: 5 mg Pantoprazole Sodium (Protonix Ec Tab) 20 mg PO DAILY [facility] Last Admin: 05/25/18 11:20 Dose: 20 mg Rivaroxaban (Xarelto) 15 mg PO BID [facility] Last Admin: 05/25/18 11:19 Dose: 15 mg Sennosides (Senokot Tab) 8.6 mg PO BID [facility] Last Admin: 05/25/18 11:19 Dose: 8.6 mg - Labs Labs: 05/24/18 07:54 05/24/18 07:54 PT 34.6 SECONDS (9.7-12.2) H 05/19/18 09:06 INR 3.2 H* 05/19/18 09:06 APTT 31 SECONDS (21-34) 05/19/18 09:06
[2018-05-25] MEDS: metroNIDAZOLE IV 250mg/50 ml 250 MG/50 ML BAG IVPB SCH ×2 (14:13→21:35)
--- NOTE | 2018-05-25 17:06 | CP.PCM.PN ---
Subjective - Date & Time of Evaluation Date of Evaluation: 05/25/18 Time of Evaluation: 08:00 - Subjective Subjective: pain + no fever Objective - Vital Signs/Intake and Output Vital Signs (last 24 hours): Temp Pulse Resp BP Pulse Ox 97.9 F 127 H 18 112/77 100 05/25/18 15:08 05/25/18 15:08 05/25/18 15:08 05/25/18 15:08 05/25/18 15:08 - Medications Medications: Current Medications Docusate Sodium (Colace) 100 mg PO BID [facility] Last Admin: 05/25/18 11:20 Dose: 100 mg Folic Acid (Folic Acid) 1 mg PO DAILY [facility] Last Admin: 05/25/18 11:19 Dose: 1 mg Piperacillin Sod/Tazobactam Sod (Zosyn 3.375 Gm Iv Premix) 3.375 gm in 50 mls @ 200 mls/hr IVPB Q8H [facility]; Protocol Last Admin: 05/25/18 13:35 Dose: 200 mls/hr Metronidazole (Flagyl) 250 mg in 50 mls @ 100 mls/hr IVPB Q8H [facility]; Protocol Stop: 05/30/18 13:31 Last Admin: 05/25/18 14:13 Dose: 100 mls/hr Mirtazapine (Remeron) 7.5 mg PO HS [facility] Last Admin: 05/24/18 21:33 Dose: 7.5 mg Morphine Sulfate (Morphine Extended Release Tab) 30 mg PO Q8 [facility] Last Admin: 05/25/18 13:33 Dose: 30 mg Multivitamins (Hexavitamin) 1 tab PO DAILY [facility] Last Admin: 05/25/18 11:19 Dose: 1 tab Ondansetron HCl (Zofran Inj) 4 mg IVP DAILY@ONCE PRN PRN Reason: Nausea/Vomiting Last Admin: 05/23/18 15:05 Dose: 4 mg Oxycodone HCl (Oxycodone Immediate Release Tab) 5 mg PO Q3 PRN PRN Reason: Pain, moderate (4-7) Last Admin: 05/25/18 15:37 Dose: 5 mg Pantoprazole Sodium (Protonix Ec Tab) 20 mg PO DAILY [facility] Last Admin: 05/25/18 11:20 Dose: 20 mg Rivaroxaban (Xarelto) 15 mg PO BID [facility] Last Admin: 05/25/18 11:19 Dose: 15 mg Sennosides (Senokot Tab) 8.6 mg PO BID [facility] Last Admin: 05/25/18 11:19 Dose: 8.6 mg - Labs Labs: 05/24/18 07:54 05/24/18 07:54 PT 34.6 SECONDS (9.7-12.2) H 05/19/18 09:06 INR 3.2 H* 05/19/18 09:06 APTT 31 SECONDS (21-34) 05/19/18 09:06 - Constitutional Appears: Non-toxic, Cachectic, Chronically Ill - Head Exam Head Exam: NORMOCEPHALIC - Eye Exam Eye Exam: absent: Scleral icterus - ENT Exam ENT Exam: Mucous Membranes Dry - Neck Exam Neck Exam: absent: Lymphadenopathy - Respiratory Exam Respiratory Exam: Decreased Breath Sounds - Cardiovascular Exam Cardiovascular Exam: REGULAR RHYTHM - GI/Abdominal Exam GI & Abdominal Exam: Distended Assessment and Plan (1) Pancreatic cancer Status: Acute (2) Sepsis Status: Acute (3) Toxic metabolic encephalopathy Status: Acute (4) Pancreatic cancer metastasized to liver Status: Acute
[2018-05-26] MEDS: metroNIDAZOLE IV 250mg/50 ml 250 MG/50 ML BAG IVPB SCH ×3 (05:15→21:22)
[2018-05-26] MEDS: Morphine 30 mg SR Tab PO SCH ×4 (06:13→23:18)
[2018-05-26] MEDS: Piperacill/Tazo 3.375gm in Dex 3.375 GM/50 ML BAG IVPB SCH ×3 (06:14→22:06)
[2018-05-26] MEDS: Pantoprazole 20 mg EC Tab PO SCH (11:00)
[2018-05-26] MEDS: Multiple Vitamins Tab PO SCH (11:00)
--- NOTE | 2018-05-26 12:00 | CP.PCM.PN ---
Subjective - Date & Time of Evaluation Date of Evaluation: 05/26/18 Time of Evaluation: 11:59 - Subjective Subjective: Progress note dictated #[id number] Review of the records from [place] show that she was diagnosed with metastatic pancreatic cancer in 03/20 with mets to liver, SMA, lymph nodes and omentum, was supposed to get chemotherapy on 04/12/18 which was postponed secondary to inclement weather and never got any treatment and family decided to move to [place] and had scheduled appointment with oncology in , She was also diagnosed with PE and DVT in [place] and was started on Lovenox, She was evaluated at [facility] in the beginning of the month, later she was admitted to [facility] from 05/08/18-05/18/18, there the daignosis was reestablished by doing biopsy and radiologic workup. Discharge home on anticoagulation and follow up with Oncology as out pt. Objective - Vital Signs/Intake and Output Vital Signs (last 24 hours): Temp Pulse Resp BP Pulse Ox 98.2 F 133 H 18 117/86 99 05/26/18 07:00 05/26/18 07:00 05/26/18 07:00 05/26/18 07:00 05/26/18 07:00 Intake and Output: 05/26/18 05/26/18 06:59 18:59 Intake Total 200 Balance 200 - Medications Medications: Current Medications Docusate Sodium (Colace) 100 mg PO BID [facility] Last Admin: 05/26/18 11:00 Dose: Not Given Folic Acid (Folic Acid) 1 mg PO DAILY [facility] Last Admin: 05/26/18 11:00 Dose: Not Given Piperacillin Sod/Tazobactam Sod (Zosyn 3.375 Gm Iv Premix) 3.375 gm in 50 mls @ 200 mls/hr IVPB Q8H [facility]; Protocol Last Admin: 05/26/18 06:14 Dose: 200 mls/hr Metronidazole (Flagyl) 250 mg in 50 mls @ 100 mls/hr IVPB Q8H [facility]; Protocol Stop: 05/30/18 13:31 Last Admin: 05/26/18 05:15 Dose: 100 mls/hr Mirtazapine (Remeron) 7.5 mg PO HS [facility] Last Admin: 05/25/18 21:34 Dose: 7.5 mg Morphine Sulfate (Morphine Extended Release Tab) 30 mg PO Q8 [facility] Last Admin: 05/26/18 06:13 Dose: 30 mg Multivitamins (Hexavitamin) 1 tab PO DAILY [facility] Last Admin: 05/26/18 11:00 Dose: Not Given Ondansetron HCl (Zofran Inj) 4 mg IVP DAILY@ONCE PRN PRN Reason: Nausea/Vomiting Last Admin: 05/23/18 15:05 Dose: 4 mg Oxycodone HCl (Oxycodone Immediate Release Tab) 5 mg PO Q3 PRN PRN Reason: Pain, moderate (4-7) Last Admin: 05/25/18 15:37 Dose: 5 mg Pantoprazole Sodium (Protonix Ec Tab) 20 mg PO DAILY [facility] Last Admin: 05/26/18 11:00 Dose: Not Given Rivaroxaban (Xarelto) 15 mg PO BID [facility] Last Admin: 05/26/18 11:00 Dose: Not Given Sennosides (Senokot Tab) 8.6 mg PO BID [facility] Last Admin: 05/26/18 11:00 Dose: Not Given - Labs Labs: 05/24/18 07:54 05/24/18 07:54 PT 34.6 SECONDS (9.7-12.2) H 05/19/18 09:06 INR 3.2 H* 05/19/18 09:06 APTT 31 SECONDS (21-34) 05/19/18 09:06
--- NOTE | 2018-05-26 16:06 | PN ---
DATE: 05/26/2018 SUBJECTIVE: The patient is seen and examined at bedside. The patient is drowsy. As per the daughter, she just got the pain medication. Daughter claiming that the patient is more weak and not able to get out of bed. PHYSICAL EXAMINATION: GENERAL: Middle-aged female, lying in bed, in no acute distress. VITAL SIGNS: Blood pressure 117/86, pulse 130, respirations 18, temperature 98.2 degrees Fahrenheit, O2 sat is 99% on nasal canula. HEENT: Pupils equal, reacting to light and accommodation. No icterus. Positive pallor. No oral thrush. Dry mucous membranes. NECK: Supple. JVD. LUNGS: Bilateral vesicular breath sounds. No wheezing. CARDIOVASCULAR SYSTEM: S1 and S2 present, tachycardic. ABDOMEN: Soft, distended. Bowel sounds present. Fluid thrill present. Shifting dullness present. CENTRAL NERVOUS SYSTEM: Drowsy, arousable. EXTREMITIES: Edema present. MEDICATIONS: Include folic acid 1 mg daily, Colace 100 mg b.i.d., Flagyl 250 mg IV every 8 hours, Remeron 7.5 mg p.o. at bedtime, morphine 30 mg p.o. every 8 hours, multivitamin one tab daily, Zofran as needed, Percocet as needed, Protonix 20 mg daily, Zosyn 3.375 g IV every 8 hours, Xarelto 15 mg p.o. b.i.d., Senna 8.6 p.o. b.i.d. LABORATORY DATA: No new labs. ASSESSMENT AND PLAN: Middle-aged female with history of metastatic pancreatic cancer with metastasis to the liver and omentum, pulmonary embolism, deep vein thrombosis, on anticoagulation, anemia, ascites with elevated white blood cell count, lower extremity swelling, status post altered mental status, as per Neurology it is metabolic encephalopathy and improved. Continue with Zosyn and Flagyl as per Dr. Casas for seven days. The hospice evaluation is in progress. Awaiting for the patient's family to make arrangements for hospice care. Discussed with the patient's daughter who is at bedside. She understands the patient's poor prognosis. Padmavathi Jonnalagadda, MD
[2018-05-26] MEDS: oxyCODONE 5 mg Immediate Release Tab PO PRN (19:49)
[2018-05-27] MEDS: metroNIDAZOLE IV 250mg/50 ml 250 MG/50 ML BAG IVPB SCH ×3 (04:58→14:43)
[2018-05-27] MEDS: Morphine 30 mg SR Tab PO SCH ×2 (05:28→14:43)
[2018-05-27] MEDS: Piperacill/Tazo 3.375gm in Dex 3.375 GM/50 ML BAG IVPB SCH ×2 (06:33→14:43)
[2018-05-27] MEDS: oxyCODONE 5 mg Immediate Release Tab PO PRN ×2 (12:05→20:41)
[2018-05-27] MEDS: Pantoprazole 20 mg EC Tab PO SCH (12:44)
[2018-05-27] MEDS: Multiple Vitamins Tab PO SCH (12:44)
--- NOTE | 2018-05-27 13:34 | CP.PCM.PN ---
Subjective - Date & Time of Evaluation Date of Evaluation: 05/27/18 Time of Evaluation: 13:34 - Subjective Subjective: Progress note dictated #[id number] Discharge summary dictated #[id number] Objective - Vital Signs/Intake and Output Vital Signs (last 24 hours): Temp Pulse Resp BP Pulse Ox 98.0 F 133 H 18 102/69 96 05/27/18 07:00 05/27/18 07:00 05/27/18 07:00 05/27/18 07:00 05/27/18 07:00 Intake and Output: 05/27/18 05/27/18 06:59 18:59 Intake Total 150 60 Balance 150 60 - Medications Medications: Current Medications Docusate Sodium (Colace) 100 mg PO BID [facility] Last Admin: 05/27/18 12:44 Dose: Not Given Folic Acid (Folic Acid) 1 mg PO DAILY [facility] Last Admin: 05/27/18 12:44 Dose: Not Given Piperacillin Sod/Tazobactam Sod (Zosyn 3.375 Gm Iv Premix) 3.375 gm in 50 mls @ 200 mls/hr IVPB Q8H [facility]; Protocol Last Admin: 05/27/18 06:33 Dose: Not Given Mirtazapine (Remeron) 7.5 mg PO HS [facility] Last Admin: 05/26/18 23:18 Dose: Not Given Morphine Sulfate (Morphine Extended Release Tab) 30 mg PO Q8 [facility] Last Admin: 05/27/18 05:28 Dose: 30 mg Multivitamins (Hexavitamin) 1 tab PO DAILY [facility] Last Admin: 05/27/18 12:44 Dose: Not Given Ondansetron HCl (Zofran Inj) 4 mg IVP DAILY@ONCE PRN PRN Reason: Nausea/Vomiting Last Admin: 05/23/18 15:05 Dose: 4 mg Oxycodone HCl (Oxycodone Immediate Release Tab) 5 mg PO Q3 PRN PRN Reason: Pain, moderate (4-7) Last Admin: 05/27/18 12:05 Dose: 5 mg Pantoprazole Sodium (Protonix Ec Tab) 20 mg PO DAILY [facility] Last Admin: 05/27/18 12:44 Dose: Not Given Rivaroxaban (Xarelto) 15 mg PO BID [facility] Last Admin: 05/27/18 12:43 Dose: Not Given Sennosides (Senokot Tab) 8.6 mg PO BID [facility] Last Admin: 05/27/18 12:44 Dose: Not Given - Labs Labs: 05/24/18 07:54 05/24/18 07:54 PT 34.6 SECONDS (9.7-12.2) H 05/19/18 09:06 INR 3.2 H* 05/19/18 09:06 APTT 31 SECONDS (21-34) 05/19/18 09:06
[2018-05-27 16:21] VITALS: BP 111/80; PULSE 149; RESP 22; TEMP 99.1; O2SAT 90
--- NOTE | 2018-05-27 23:19 | CP.PCM.PRO ---
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 [id number]
--- NOTE | 2018-05-28 01:28 | CP.PCM.PN ---
Subjective - Date & Time of Evaluation Date of Evaluation: 05/23/18 Time of Evaluation: 12:00 - Subjective Subjective: Feels weak. Objective - Vital Signs/Intake and Output Vital Signs (last 24 hours): Temp Pulse Resp BP Pulse Ox 99.1 F 149 H 22 111/80 90 L 05/27/18 15:47 05/27/18 15:47 05/27/18 15:47 05/27/18 15:47 05/27/18 15:47 Intake and Output: 05/27/18 05/28/18 18:59 06:59 Intake Total 90 Balance 90 - Medications Medications: Current Medications Docusate Sodium (Colace) 100 mg PO BID [facility] Last Admin: 05/27/18 18:02 Dose: Not Given Folic Acid (Folic Acid) 1 mg PO DAILY [facility] Last Admin: 05/27/18 12:44 Dose: Not Given Piperacillin Sod/Tazobactam Sod (Zosyn 3.375 Gm Iv Premix) 3.375 gm in 50 mls @ 200 mls/hr IVPB Q8H [facility]; Protocol Last Admin: 05/27/18 14:43 Dose: Not Given Mirtazapine (Remeron) 7.5 mg PO HS [facility] Last Admin: 05/26/18 23:18 Dose: Not Given Morphine Sulfate (Morphine Extended Release Tab) 30 mg PO Q8 [facility] Last Admin: 05/27/18 14:43 Dose: Not Given Multivitamins (Hexavitamin) 1 tab PO DAILY [facility] Last Admin: 05/27/18 12:44 Dose: Not Given Ondansetron HCl (Zofran Inj) 4 mg IVP DAILY@ONCE PRN PRN Reason: Nausea/Vomiting Last Admin: 05/23/18 15:05 Dose: 4 mg Oxycodone HCl (Oxycodone Immediate Release Tab) 5 mg PO Q3 PRN PRN Reason: Pain, moderate (4-7) Last Admin: 05/27/18 20:41 Dose: 5 mg Pantoprazole Sodium (Protonix Ec Tab) 20 mg PO DAILY [facility] Last Admin: 05/27/18 12:44 Dose: Not Given Rivaroxaban (Xarelto) 15 mg PO BID [facility] Last Admin: 05/27/18 18:03 Dose: Not Given Sennosides (Senokot Tab) 8.6 mg PO BID [facility] Last Admin: 05/27/18 18:02 Dose: Not Given - Labs Labs: 05/24/18 07:54 05/24/18 07:54 PT 34.6 SECONDS (9.7-12.2) H 05/19/18 09:06 INR 3.2 H* 05/19/18 09:06 APTT 31 SECONDS (21-34) 05/19/18 09:06 - Head Exam Head Exam: ATRAUMATIC - Eye Exam Eye Exam: Normal appearance - ENT Exam ENT Exam: Mucous Membranes Dry - Respiratory Exam Respiratory Exam: NORMAL BREATHING PATTERN - Cardiovascular Exam Cardiovascular Exam: +S1, +S2 - GI/Abdominal Exam GI & Abdominal Exam: Normal Bowel Sounds Assessment and Plan (1) Anemia Assessment & Plan: chronic disease Status: Acute (2) Leukocytosis Assessment & Plan: on antibiotics Status: Acute (3) DVT (deep venous thrombosis) Assessment & Plan: on anticoagulation Status: Acute (4) Pancreatic cancer Assessment & Plan: stage IV awaiting records Status: Acute
--- NOTE | 2018-05-28 01:30 | CP.PCM.PN ---
Subjective - Date & Time of Evaluation Date of Evaluation: 05/25/18 Time of Evaluation: 16:00 - Subjective Subjective: Has some abdominal bloating. Objective - Vital Signs/Intake and Output Vital Signs (last 24 hours): Temp Pulse Resp BP Pulse Ox 99.1 F 149 H 22 111/80 90 L 05/27/18 15:47 05/27/18 15:47 05/27/18 15:47 05/27/18 15:47 05/27/18 15:47 Intake and Output: 05/27/18 05/28/18 18:59 06:59 Intake Total 90 Balance 90 - Medications Medications: Current Medications Docusate Sodium (Colace) 100 mg PO BID [facility] Last Admin: 05/27/18 18:02 Dose: Not Given Folic Acid (Folic Acid) 1 mg PO DAILY [facility] Last Admin: 05/27/18 12:44 Dose: Not Given Piperacillin Sod/Tazobactam Sod (Zosyn 3.375 Gm Iv Premix) 3.375 gm in 50 mls @ 200 mls/hr IVPB Q8H [facility]; Protocol Last Admin: 05/27/18 14:43 Dose: Not Given Mirtazapine (Remeron) 7.5 mg PO HS [facility] Last Admin: 05/26/18 23:18 Dose: Not Given Morphine Sulfate (Morphine Extended Release Tab) 30 mg PO Q8 [facility] Last Admin: 05/27/18 14:43 Dose: Not Given Multivitamins (Hexavitamin) 1 tab PO DAILY [facility] Last Admin: 05/27/18 12:44 Dose: Not Given Ondansetron HCl (Zofran Inj) 4 mg IVP DAILY@ONCE PRN PRN Reason: Nausea/Vomiting Last Admin: 05/23/18 15:05 Dose: 4 mg Oxycodone HCl (Oxycodone Immediate Release Tab) 5 mg PO Q3 PRN PRN Reason: Pain, moderate (4-7) Last Admin: 05/27/18 20:41 Dose: 5 mg Pantoprazole Sodium (Protonix Ec Tab) 20 mg PO DAILY [facility] Last Admin: 05/27/18 12:44 Dose: Not Given Rivaroxaban (Xarelto) 15 mg PO BID [facility] Last Admin: 05/27/18 18:03 Dose: Not Given Sennosides (Senokot Tab) 8.6 mg PO BID [facility] Last Admin: 05/27/18 18:02 Dose: Not Given - Labs Labs: 05/24/18 07:54 05/24/18 07:54 PT 34.6 SECONDS (9.7-12.2) H 05/19/18 09:06 INR 3.2 H* 05/19/18 09:06 APTT 31 SECONDS (21-34) 05/19/18 09:06 - Head Exam Head Exam: ATRAUMATIC - Eye Exam Eye Exam: Normal appearance - ENT Exam ENT Exam: Mucous Membranes Dry - Respiratory Exam Respiratory Exam: NORMAL BREATHING PATTERN - Cardiovascular Exam Cardiovascular Exam: +S1, +S2 - GI/Abdominal Exam GI & Abdominal Exam: Normal Bowel Sounds Assessment and Plan (1) Anemia Assessment & Plan: anemia of chronic disease Status: Acute (2) Leukocytosis Assessment & Plan: on antibiotics Status: Acute (3) DVT (deep venous thrombosis) Assessment & Plan: on anticoagulation Status: Acute (4) Pancreatic cancer Assessment & Plan: stage IV clinically declining not a treatment candidate discussed with family, considering hospice Status: Acute
--- NOTE | 2018-05-28 01:31 | CP.PCM.PN ---
Subjective - Date & Time of Evaluation Date of Evaluation: 05/26/18 Time of Evaluation: 17:00 - Subjective Subjective: Fatigued, afamily at bedside agreeable to hospice. Objective - Vital Signs/Intake and Output Vital Signs (last 24 hours): Temp Pulse Resp BP Pulse Ox 99.1 F 149 H 22 111/80 90 L 05/27/18 15:47 05/27/18 15:47 05/27/18 15:47 05/27/18 15:47 05/27/18 15:47 Intake and Output: 05/27/18 05/28/18 18:59 06:59 Intake Total 90 Balance 90 - Medications Medications: Current Medications Docusate Sodium (Colace) 100 mg PO BID [facility] Last Admin: 05/27/18 18:02 Dose: Not Given Folic Acid (Folic Acid) 1 mg PO DAILY [facility] Last Admin: 05/27/18 12:44 Dose: Not Given Piperacillin Sod/Tazobactam Sod (Zosyn 3.375 Gm Iv Premix) 3.375 gm in 50 mls @ 200 mls/hr IVPB Q8H [facility]; Protocol Last Admin: 05/27/18 14:43 Dose: Not Given Mirtazapine (Remeron) 7.5 mg PO HS [facility] Last Admin: 05/26/18 23:18 Dose: Not Given Morphine Sulfate (Morphine Extended Release Tab) 30 mg PO Q8 [facility] Last Admin: 05/27/18 14:43 Dose: Not Given Multivitamins (Hexavitamin) 1 tab PO DAILY [facility] Last Admin: 05/27/18 12:44 Dose: Not Given Ondansetron HCl (Zofran Inj) 4 mg IVP DAILY@ONCE PRN PRN Reason: Nausea/Vomiting Last Admin: 05/23/18 15:05 Dose: 4 mg Oxycodone HCl (Oxycodone Immediate Release Tab) 5 mg PO Q3 PRN PRN Reason: Pain, moderate (4-7) Last Admin: 05/27/18 20:41 Dose: 5 mg Pantoprazole Sodium (Protonix Ec Tab) 20 mg PO DAILY [facility] Last Admin: 05/27/18 12:44 Dose: Not Given Rivaroxaban (Xarelto) 15 mg PO BID [facility] Last Admin: 05/27/18 18:03 Dose: Not Given Sennosides (Senokot Tab) 8.6 mg PO BID [facility] Last Admin: 05/27/18 18:02 Dose: Not Given - Labs Labs: 05/24/18 07:54 05/24/18 07:54 PT 34.6 SECONDS (9.7-12.2) H 05/19/18 09:06 INR 3.2 H* 05/19/18 09:06 APTT 31 SECONDS (21-34) 05/19/18 09:06 - Head Exam Head Exam: ATRAUMATIC - Eye Exam Eye Exam: Normal appearance - ENT Exam ENT Exam: Mucous Membranes Dry - Respiratory Exam Respiratory Exam: NORMAL BREATHING PATTERN - Cardiovascular Exam Cardiovascular Exam: +S1, +S2 - GI/Abdominal Exam GI & Abdominal Exam: Normal Bowel Sounds Assessment and Plan (1) Anemia Status: Acute (2) Leukocytosis Status: Acute (3) DVT (deep venous thrombosis) Status: Acute (4) Pancreatic cancer Status: Acute
--- NOTE | 2018-05-28 08:52 | PN ---
DATE: 05/27/2018 SUBJECTIVE: The patient was seen and examined at bedside. The patient is drowsy but arousable, complaining of abdominal discomfort. PHYSICAL EXAMINATION: GENERAL: Middle-aged female, lying in bed, in no acute distress. VITAL SIGNS: Blood pressure 118/80, pulse 133, temperature 99.1 degrees Fahrenheit, O2 sat is 96% on nasal canula, respiratory rate 18. HEENT: Pupils reacting to light and accommodation. Extraocular muscles intact. No icterus. Positive pallor. Dry mucous membranes. NECK: Supple. No JVD. LUNGS: Bilateral vesicular breath sounds. Fair air entry. CARDIOVASCULAR SYSTEM: S1 and S2 present, regular, tachycardic. ABDOMEN: Distended. Bowel sounds present. Shifting dullness present. Fluid thrill present. CENTRAL NERVOUS SYSTEM: Drowsy, arousable, oriented x2. EXTREMITIES: Edema present. MEDICATIONS: Colace, folic acid, Remeron, morphine as needed, multivitamin daily, Zofran as needed, Percocet as needed, Protonix 20 mg daily, Zosyn 3.375 g IV every 8 hours, Xarelto 15 mg p.o. b.i.d., Senna. ASSESSMENT AND PLAN: Middle-aged female with history of metastatic pancreatic cancer with metastasis to liver and omentum, possible malignant ascites, anemia, pulmonary embolism, deep vein thrombosis, elevated WBC count, status post completion of 1 week of IV antibiotics as recommended by Infectious Disease, tachycardia. The patient is made DNR/DNI by the patient's daughter and awaiting for hospice placement. The patient has been refusing the p.o. medications. We will continue with supportive care. Prognosis is guarded. Syed Cheema MD
--- NOTE | 2018-05-28 09:17 | PN ---
DATE: 05/25/2018 SUBJECTIVE: The patient was seen and examined at bedside. The patient offers no new complaints. Her abdominal pain is slightly better than yesterday, but still present. Complaining of abdominal distention as yesterday. Complains of constipation for the past two days and left lower extremity swelling. Denies any difficulty breathing. Denies any vomiting. PHYSICAL EXAMINATION: GENERAL: Middle aged female, lying in bed, in no acute distress. VITAL SIGNS: Blood pressure 112/77, pulse 127, respirations 18, temperature 97.9 degrees Fahrenheit, O2 sat is 100% on 2 L nasal canula. HEENT: Pupils equal, round, and reacting to light and accommodation. Extraocular muscles intact. No icterus. Positive pallor. No oral thrush. Dry mucous membranes. NECK: Supple. No JVD. LUNGS: Bilateral vesicular breath sounds. No wheezing. No rhonchi. CARDIOVASCULAR SYSTEM: S1 and S2 present, regular. ABDOMEN: Distended. Bowel sounds present. Nontender. Fluid thrill present. Shifting dullness present. CENTRAL NERVOUS SYSTEM: Alert, awake, oriented x3. No focal deficits noted. EXTREMITIES: Bilateral lower extremity edema, left more than the right noted. MEDICATIONS: Include Colace 100 mg daily, folic acid 1 mg daily, Flagyl 250 mg IV every 8 hours, Remeron 7.5 mg p.o. at bedside, morphine 30 mg p.o. every 8 hours, multivitamin 1 tablet daily, Zofran 4 mg as need, Percocet 5 mg every 3 hours p.r.n., Protonix 40 mg daily, Zosyn 3.375 g IV every 8 hours, Xarelto 15 mg p.o. b.i.d., senna 8.6 mg p.o. b.i.d. LABORATORY DATA: Labs from yesterday: WBC 24.5, hemoglobin 9.7, hematocrit 29.7, and platelets 250. Sodium 142, potassium 3.7, chloride 111, bicarb 23, BUN 16, creatinine 0.7, glucose 152. AST 105, ALT 36, alkaline phosphatase 326, albumin 2.3, and total protein 6.1. ASSESSMENT AND PLAN: Middle aged female with history of deep venous thrombosis, pulmonary embolism, metastatic pancreatic cancer, on long-term anticoagulation, anemia, elevated WBC count, on antibiotics, possible malignant ascites, lower extremity edema, previously diagnosed bilateral deep venous thrombosis, on Xarelto. The patient is made DNR/DNI yesterday by patient and patient's power of senior attorney, her daughter. Both signs are concerned, requested for hospice care, which was requested. We will await hospice evaluation. Case discussed with case aide and certified social workers in health care when the patient is accepted by hospice. We will plan discharging the patient home. The patient's family is leaning towards the home hospice care. We will continue with current medication. We will continue with Flagyl and Zosyn for 7 days. Continue with Xarelto, deep venous thrombosis treatment, gastrointestinal prophylaxis, offered patient therapeutic tablet. The patient is refusing therapeutic paracentesis at this time, still awaiting for medical records from [place]. Continue with other supportive care. Prognosis is guarded. Syed Cheema MD
--- NOTE | 2018-06-01 04:11 | DS ---
DISCHARGE DIAGNOSES: Metastatic pancreatic cancer with metastasis to liver and omentum, ascites, pulmonary embolism, lower extremity deep venous thrombosis, anemia, elevated white blood cell counts, lower extremity edema, on long-term anticoagulation for pulmonary embolism and deep venous thrombosis. HISTORY OF PRESENT ILLNESS: Ms. Nunez was a 67-year-old female with past medical history of metastatic pancreatic cancer with mets to liver and omentum, asthma, DVT, and PE. Her pancreatic cancer was diagnosed in [place] in March. She moved to [place] for further care, was at [facility] and then the patient was admitted to [facility] for similar complaints of elevated WBC counts. After extensive workup at [facility], the patient was discharged the night before admission to [facility]. On the day of admission, the patient's daughter claimed that the patient was not responding for a few minutes and the patient was brought into the emergency room. In the ED, the patient was alert and awake. The patient was admitted for further neurological evaluation and further treatment. On the day of expiration, the patient was more lethargic in the morning, barely arousable. Later, the patient was unresponsive. Around 2313 on 05/27/2018, the patient was unresponsive. Pupils dilated. There was no respiration. No recordable blood pressure and no heart rates were appreciated as documented by the resident's note. As the patient was DNR, Code Blue was not called and the patient was pronounced on 05/27/2018, and the patient's family was at bedside. HOSPITAL COURSE: The patient was admitted to telemetry for neurological watch for elevated WBC counts. The patient was evaluated by Neurology. It was determined that her symptoms were from metabolic causes. No further workup recommended. The patient was evaluated by ID, started on Zosyn and Flagyl. Her white count seems to be improving, then Dr. Casas recommended 7 days of IV antibiotics. The patient was receiving IV antibiotics. The patient was also evaluated by Hematology. Review of her records show that the patient did not receive any chemotherapy with her metastatic stage. The patient was recommended other treatment options. The patient decided to go towards palliative care and hospice care. As per the patient's family's wishes, the patient was made DNR and DNI and waiting for hospice evaluation. The patient's family requested home hospice. While the hospice placement process was underway, the patient became lethargic and the patient was pronounced . Syed Cheema MD
== END 2018-05-28 00:13 | DRG 871 ==
LOC: C.ER 08:36 → C.9E 12:45 → C.6T 13:20
PROVIDERS: ADMIT Internal Medicine; ATTEND Internal Medicine
DX: A41.9 Sepsis, unspecified organism (principal); G92 Toxic encephalopathy; C25.9 Malignant neoplasm of pancreas, unspecified; C78.7 Secondary malignant neoplasm of liver and intrahepatic bile duct; C78.6 Secondary malignant neoplasm of retroperitoneum and peritoneum; D68.9 Coagulation defect, unspecified; I82.422 Acute embolism and thrombosis of left iliac vein; R18.0 Malignant ascites; D64.9 Anemia, unspecified; J45.909 Unspecified asthma, uncomplicated; D63.8 Anemia in other chronic diseases classified elsewhere; K21.9 Gastro-esophageal reflux disease without esophagitis; K59.00 Constipation, unspecified; R29.708 NIHSS score 8; Z66 Do not resuscitate; Z51.5 Encounter for palliative care; Z86.711 Personal history of pulmonary embolism; Z86.718 Personal history of other venous thrombosis and embolism; Z79.01 Long term (current) use of anticoagulants; Z87.891 Personal history of nicotine dependence; Z90.49 Acquired absence of other specified parts of digestive tract; Z91.013 Allergy to seafood; Z82.5 Family history of asthma and other chronic lower respiratory diseases